=== PATIENT | female | born 1955 | race Caucasian/White ===

== ENCOUNTER 2018-04-01 01:54 | Emergency (ER) | payer MEDICARE ==
[~2018-04-01] VITALS: Ht 170.2 cm; Wt 45.4 kg
[~2018-04-01 01:54] MED LIST: BUPRENORPHINE HC8 MG PO; ESCI10; GABA300 PO; LEVFLO500 PO
[2018-04-01] MEDS ORDERED: ALBU90OI INH (02:23)
[2018-04-01] MEDS ORDERED: TIOT18 INH (02:23)
[2018-04-01] MEDS ORDERED: Prednisone50 MG PO (02:23)
== END 2018-04-01 04:17 | disposition home or self-care (01) ==
LOC: ER 01:54
DX: J44.9 Chronic obstructive pulmonary disease, unspecified (principal); Z88.1 Allergy status to other antibiotic agents; Z88.8 Allergy status to other drugs, medicaments and biological substances; Z79.899 Other long term (current) drug therapy; F17.200 Nicotine dependence, unspecified, uncomplicated
CPT/HCPCS: 94640; 99285-25

== ENCOUNTER 2018-09-05 06:34 | Day surgery (SDC) | payer MEDICARE ==
[~2018-09-05] VITALS: Ht 170.2 cm; Wt 55.0 kg
[~2018-09-05 06:34] MED LIST changes: +ALBU90OI; +ALBU90OI INH; +AMLO5; +BUDE.25; +BUSP15 PO; +BUTRANS1 EAC4; +ESCI20; +LISI20; +MELO7.5; +Prednisone50 MG PO; +TIOT18 INH; +VARE1
== END 2018-09-05 22:38 | disposition home or self-care (01) ==
LOC: MHTC 06:34
DX: I35.8 Other nonrheumatic aortic valve disorders (principal); I70.0 Atherosclerosis of aorta; J44.9 Chronic obstructive pulmonary disease, unspecified; F17.200 Nicotine dependence, unspecified, uncomplicated; I10 Essential (primary) hypertension; F10.10 Alcohol abuse, uncomplicated; Z88.1 Allergy status to other antibiotic agents; Z88.2 Allergy status to sulfonamides
CPT/HCPCS: 93312; 93325; J0282; J2704; J7030

== ENCOUNTER 2018-11-21 15:34 | Inpatient (IN) | payer MEDICARE ==
[~2018-11-21] VITALS: Ht 160 cm; Wt 51.8 kg
[~2018-11-21 15:34] MED LIST changes: -ALBU90OI; -BUDE.25; -BUSP15 PO; -ESCI20; -GABA300 PO; -LISI20; -MELO7.5
[2018-11-21 16:23] LABS: BASOPHILS ABSOLUTE AUTO 0.04 K/mm3 (0.00-0.23); BASOPHILS PERCENT AUTO 0 % (0-2); EOSINOPHILS PERCENT AUTO 0 % (0-6); Hematocrit 48.1 % (33.0-51.0); Hemoglobin 16.5 g/dL (11.5-16.0); IMMATURE GRAN ABSOLUTE AUTO 0.07 K/mm3 (0.00-0.10); IMMATURE GRAN PERCENT AUTO 1 % (0-1); LYMPHOCYTES ABSOLUTE AUTO 0.68 K/mm3 (0.84-5.20); LYMPHOCYTES PERCENT AUTO 6 % (21-46); MONOCYTES ABSOLUTE AUTO 1.58 K/mm3 (0.16-1.47); MONOCYTES PERCENT AUTO 13 % (4-13); Mean Corpuscular HGB 29.6 pg (26.0-34.0); Mean Corpuscular HGB Conc 34.3 g/dL (31.5-36.5); Mean Corpuscular Volume 86 fL (80-100); Mean Platelet Volume 10.6 fL (9.1-12.4); NEUTROPHILS ABSOLUTE AUTO 9.47 K/mm3 (1.96-9.15); NEUTROPHILS PERCENT AUTO 80 % (41-73); Platelet Count 284 K/mm3 (150-400); RDW Coefficient Variation 12.9 % (11.7-14.2); Red Blood Cell Count 5.57 M/mm3 (3.80-5.20); White Blood Cell Count 11.84 K/mm3 (4.00-11.30)
[2018-11-21] MEDS ORDERED: Mobic15 MG PO (16:35)
[2018-11-21 16:38] LABS: U Amphetamine Screen Not Detected; U Barbituate Screen Not Detected; U Benzodiazapine Screen Not Detected; U Buprenorphine Screen Not Detected; U Cannabinoids Screen Not Detected; U Cocaine Screen Not Detected; U Methadone Screen Not Detected; U Methamphetamine Screen Not Detected; U Opiates Screen Not Detected; U Oxycodone Screen Not Detected; U Phencyclidine Screen Not Detected; U Propoxyphene Screen Not Detected
[2018-11-21] MEDS ORDERED: Prinivil10 MG PO (16:41)
[2018-11-21 16:45] LABS: Ethanol (Alcohol), Blood, Med <3 mg/dL; Salicylate 2.6 mg/dL (2.8-20.0)
[2018-11-21 16:46] LABS: Alanine Aminotransfer (ALT/SGP 39 U/L (12-78); Albumin, Blood 3.9 g/dL (3.4-5.0); Albumin/Globulin Ratio 0.9 (0.8-1.8); Alk Phos 153 U/L (50-136); Anion Gap 16 mmol/L (6-16); Aspartate Aminotrans (AST/SGOT 54 U/L (12-37); Bilirubin, Total 1.1 mg/dL (0.1-1.0); Blood Urea Nitrogen 12 mg/dL (8-24); Bun/Creatinine Ratio 21.3 (12.0-20.0); CO2, Blood 20 mmol/L (21-32); Calcium, Blood 9.4 mg/dL (8.5-10.1); Chloride, Blood 94 mmol/L (98-108); Creatinine, Blood 0.56 mg/dL (0.40-1.00); Globulin, Blood 4.4 g/dL (2.2-4.0); Glomerular Filtration Rate >60 (60-); Glucose, Blood 181 mg/dL (70-99); Potassium, Blood 3.3 mmol/L (3.5-5.5); Sodium, Blood 130 mmol/L (136-145); Total Protein, Blood 8.3 g/dL (6.4-8.2)
[2018-11-21 16:53] LABS: Acetaminophen, Random <2.0 ug/mL (10.0-30.0)
[2018-11-21 21:15] LABS: Source, Urine Clean Catch
[2018-11-21 21:21] LABS: Bilirubin, Urine Neg (Neg); Blood, Urine 4+ (Neg); Glucose Qualitative, Urine Neg (Neg); Ketones, Urine 3+ (Neg); Leukocyte Esterase, Urine Neg (Neg); Nitrite, Urine Neg (Neg); Protein, Urine 4+ (Neg); Specific Gravity, Urine 1.015 (1.003-1.022); Urobilinogen, Urine NORM (Normal)
[2018-11-21 21:28] LABS: Appearance, Urine Clear (Clear); Color, Urine Yellow (P-Yellow)
[2018-11-21 21:29] LABS: Bacteria Rare /hpf; Red Blood Cells, Urine 0-2 /hpf (0-2); Squamous Epithelial Cells Not Seen /hpf (Few); White Blood Cells, Urine 0-2 /hpf (0-5)
--- NOTE | 2018-11-21 21:40 | NUR ---
ARRIVAL TO ICU/CIWA/NEURO ASSESSMENTS PT ARRIVED TO ICU APPROX 1900. UPON INITIAL ARRIVAL, PUPILS PINPOINT AND MINIMALLY RESPONSIVE. PT MAKING NO SPONTANEOUS MOVEMENTS, BUT WITHDRAWING TO PAIN IN ALL EXTREMETIES. PT NONVERBAL AND NOT FOLLOWING ANY COMMANDS. WITHIN AN HOUR PT BEGINS OPENING EYES SPONTANEOUSLY. 3 MM BILATERALLY AND RESPONSIVE. EYES NOT TRACKING. PT USING RIGHT HAND TO MAKE SPONTANEOUS MOVEMENTS TOWARDS MOUTH. PURSES LIPS TO TAKE A DRINK FROM A STRAW. OCCASIONAL MOVEMENTS WITH RIGHT LEG. SINCE THEN, PT HAS BEGAN ALSO MOVING LEFT HAND SPONTANEOUSLY WELL RIGHT ARM. PRECEDEX STARTED PT HAS OCCASIONAL SMALL TWITCHING MOVEMENTS IN HANDS, APPEARS TO BE HAVING HALLUCINATIONS SHE IS MAKING DRINKING MOVEMENTS, HEART RATE IS ELEVATED AND FOR PREVENTION OF FURTHER SEIZURES. STATES LAST DRINK WAS WEDNESDAY. OTHERWISE, VITALS STABLE. SEE ADMISSION ASSESSMENT AND FLOWSHEETS. ADMISSION HISTORY AND MED REC COMPLETED WITH ASSISTANCE FROM . VERIFIED PT'S WISHES FOR FULL CODE WITH .
--- NOTE | 2018-11-21 23:23 | NUR ---
REASSESSMENT PT CONTINUES TO BE NONVERBAL. NOT FOLLOWING COMMANDS. PT DID OPEN EYES AND LOOK AT STAFF ONE TIME. MOVING ALL EXTREMETIES SPONTANEOUSLY. HR IMPROVED TO 90'S-100'S WITH PRECEDEX. BP STABLE. SEE FLOWSHEET.
[2018-11-22 00:35] LABS: Anion Gap 14 mmol/L (6-16); Blood Urea Nitrogen 14 mg/dL (8-24); Bun/Creatinine Ratio 23.8 (12.0-20.0); CO2, Blood 22 mmol/L (21-32); Calcium, Blood 8.3 mg/dL (8.5-10.1); Chloride, Blood 100 mmol/L (98-108); Creatinine, Blood 0.59 mg/dL (0.40-1.00); Glomerular Filtration Rate >60 (60-); Glucose, Blood 142 mg/dL (70-99); Potassium, Blood 4.3 mmol/L (3.5-5.5); Sodium, Blood 136 mmol/L (136-145)
[2018-11-22 05:03] LABS: BASOPHILS ABSOLUTE AUTO 0.02 K/mm3 (0.00-0.23); BASOPHILS PERCENT AUTO 0 % (0-2); EOSINOPHILS ABSOLUTE AUTO 0.01 K/mm3 (0.00-0.68); EOSINOPHILS PERCENT AUTO 0 % (0-6); Hematocrit 45.3 % (33.0-51.0); Hemoglobin 15.1 g/dL (11.5-16.0); IMMATURE GRAN ABSOLUTE AUTO 0.07 K/mm3 (0.00-0.10); IMMATURE GRAN PERCENT AUTO 1 % (0-1); LYMPHOCYTES ABSOLUTE AUTO 1.24 K/mm3 (0.84-5.20); LYMPHOCYTES PERCENT AUTO 11 % (21-46); MONOCYTES ABSOLUTE AUTO 1.83 K/mm3 (0.16-1.47); MONOCYTES PERCENT AUTO 16 % (4-13); Mean Corpuscular HGB 29.4 pg (26.0-34.0); Mean Corpuscular HGB Conc 33.3 g/dL (31.5-36.5); Mean Corpuscular Volume 88 fL (80-100); Mean Platelet Volume 9.9 fL (9.1-12.4); NEUTROPHILS ABSOLUTE AUTO 8.64 K/mm3 (1.96-9.15); NEUTROPHILS PERCENT AUTO 73 % (41-73); Platelet Count 190 K/mm3 (150-400); RDW Coefficient Variation 13.1 % (11.7-14.2); RDW Standard Deviation 42.7 fL (35.1-46.3); Red Blood Cell Count 5.14 M/mm3 (3.80-5.20); White Blood Cell Count 11.81 K/mm3 (4.00-11.30)
[2018-11-22 05:17] LABS: Anion Gap 14 mmol/L (6-16); Blood Urea Nitrogen 17 mg/dL (8-24); Bun/Creatinine Ratio 26.8 (12.0-20.0); CO2, Blood 21 mmol/L (21-32); Calcium, Blood 7.9 mg/dL (8.5-10.1); Chloride, Blood 103 mmol/L (98-108); Creatinine, Blood 0.64 mg/dL (0.40-1.00); Glomerular Filtration Rate >60 (60-); Glucose, Blood 141 mg/dL (70-99); Magnesium, Blood 1.5 mg/dL (1.6-2.4); Potassium, Blood 3.7 mmol/L (3.5-5.5); Sodium, Blood 138 mmol/L (136-145)
--- NOTE | 2018-11-22 05:48 | NUR ---
DR. TUBBS COMMUNICATION UPDATED DR. TUBBS ON BLADDER SCAN OF GREATER THAN 950 AND NO URINATION SINCE ARRIVAL TO UNIT. NEW ORDER FOR BETHEA. UPDATED ON FLIPPED T WAVES AND MAGNESIUM LEVEL. NEW ORDER FOR TROPONIN AND MAGNESIUM RECEIVED.
[2018-11-22 06:06] LABS: Source, Urine Catheter
[2018-11-22 06:10] LABS: Bilirubin, Urine Neg (Neg); Blood, Urine 3+ (Neg); Glucose Qualitative, Urine Neg (Neg); Ketones, Urine 2+ (Neg); Leukocyte Esterase, Urine Neg (Neg); Nitrite, Urine Neg (Neg); Protein, Urine 4+ (Neg); Urobilinogen, Urine NORM (Normal)
[2018-11-22 06:15] LABS: Appearance, Urine Clear (Clear); Color, Urine Yellow (P-Yellow)
[2018-11-22 06:16] LABS: Bacteria Not Seen /hpf; Red Blood Cells, Urine 0-2 /hpf (0-2); Squamous Epithelial Cells Not Seen /hpf (Few); White Blood Cells, Urine Not Seen /hpf (0-5)
--- NOTE | 2018-11-22 07:19 | NUR ---
SUMMARY SINCE PREVIOUS NOTE, TROPONIN RESULT ELEVATED. UPDATED DR. TUBBS. NEW ORDER FOR CARDIOLOGY CONSULT, EKG AND ECHO THIS MORNING. DR. ARELLANO TO BEDSIDE THIS MORNING FOR ASSESSMENT. EKG COMPLETED AND REVIEWED WITH DR. ARELLANO. UPON NURSE ROUNDS AND REASSESSMENT, PT REPORTS "OWE" TO STERNUM RUB AND PULLS HANDS AWAY. STRENGTH EQUAL BILATERALLY BUT STILL NOT FOLLOWING COMMANDS. BETHEA INSERTED FOR HIGH BLADDER SCAN VOLUME. SEE FLOWSHEETS FOR VITALS AND TITRATIONS.
[2018-11-22 07:28] LABS: International Normalized Ratio 1.08; Prothrombin Time Results 11.4 Sec (9.7-11.5)
--- NOTE | 2018-11-22 07:40 | NUR ---
ASSUMED CARE REPORT FROM ARLET DESAI. PRECEDEX GTT 0.1 MCG/KG/HR. MAGNESIUM 2 GRAM REPLACEMENT WITH NS 100 ML/HR. PRECEDEX GTT STOPPED FOR PROLONGED QT
--- NOTE | 2018-11-22 07:42 | NUR ---
MD VISIT DR. CARDOZA IN. ORDERS RECEIVED AND IMPLEMENTED. HEPARIN GTT DC'D. BOLUS WAS NOT GIVEN. WILL GIVE ANOTHER 2 GRAM MAG AND ADDITIONAL POTASSIUM
--- NOTE | 2018-11-22 08:10 | NUR ---
MD VISIT DR. BLEVINS IN. ECHO BEING PERFORMED AT THIS TIME
--- NOTE | 2018-11-22 08:41 | NUR ---
echocardiogram completed
--- NOTE | 2018-11-22 10:52 | NUR ---
DR. CARDOZA CALLED TO ASK IF PATIENT CAN SWALLOW YET. PATIENT WAS NOT ABLE TO TAKE WATER WHEN ATTEMPTED. METOPROLOL ORDERED IV Q6 UNTIL PATIENT CAN SWALLOW WITH ORDER TO CALL HIM WHEN PATIENT IS ABLE TO TAKE PO AND HE WILL CHANGE THE RX.
--- NOTE | 2018-11-22 12:16 | NUR ---
NOTIFIED DR. CARDOZA THAT PT IS ABLE TO TAKE PO NOW. IV METOPROLOL CHANGED TO COREG AND THEN DR. CARDOZA CHANGED IT TO TOPROL XL BECAUSE HE REMEMBERED THAT PT IS A HEAVY SMOKER.
[2018-11-22 12:43] LABS: Anion Gap 11 mmol/L (6-16); Blood Urea Nitrogen 19 mg/dL (8-24); Bun/Creatinine Ratio 29.6 (12.0-20.0); CO2, Blood 23 mmol/L (21-32); Calcium, Blood 8.2 mg/dL (8.5-10.1); Chloride, Blood 105 mmol/L (98-108); Creatinine, Blood 0.64 mg/dL (0.40-1.00); Glomerular Filtration Rate >60 (60-); Glucose, Blood 104 mg/dL (70-99); Magnesium, Blood 3.3 mg/dL (1.6-2.4); Potassium, Blood 4.5 mmol/L (3.5-5.5); Sodium, Blood 139 mmol/L (136-145)
--- NOTE | 2018-11-22 12:51 | NUR ---
PT PULLED OUT IV. SAID IT FELT TIGHT. MULTIPLE ATTEMPTS TO START ANOTHER FAILED.
--- NOTE | 2018-11-22 12:55 | NUR ---
IN. ASSISTING PT WITH LUNCH
--- NOTE | 2018-11-22 17:51 | NUR ---
RECEIVED OK FROM DR. CARDOZA FOR PT TO BE CHANGED TO PCU STATUS. DR. BLEVINS NOTIFIED. PT IS NOW PCU STATUS. FAMILY AT BEDSIDE ASSISTING WITH DINNER.
--- NOTE | 2018-11-22 18:08 | NUR ---
ROOT BEER FLOAT PROVIDED
--- NOTE | 2018-11-22 18:50 | NUR ---
PATIENT WAS ABLE TO FEED HERSELF ROOT BEER FLOAT.
--- NOTE | 2018-11-23 | NUR ---
PT HAS BEEN AWAKE & ALERT, COOPERATIVE, BUT FORGETFUL. BED ALARM ON FOR SAFETY. STATES SHE DRINKS A LARGE BOTTLE OF WINE DAILY. DENIES THAT SHE HAS EVER HAD SEIZURES BEFORE. DENIES PAIN, NAUSEA, OR HALLUCINATIONS. NO TREMORS NOTED.
[2018-11-23 04:09] LABS: Anion Gap 9 mmol/L (6-16); Blood Urea Nitrogen 13 mg/dL (8-24); Bun/Creatinine Ratio 25.7 (12.0-20.0); CO2, Blood 24 mmol/L (21-32); Calcium, Blood 7.7 mg/dL (8.5-10.1); Chloride, Blood 101 mmol/L (98-108); Creatinine, Blood 0.51 mg/dL (0.40-1.00); Glomerular Filtration Rate >60 (60-); Glucose, Blood 107 mg/dL (70-99); Magnesium, Blood 1.7 mg/dL (1.6-2.4); Potassium, Blood 3.4 mmol/L (3.5-5.5); Sodium, Blood 134 mmol/L (136-145)
--- NOTE | 2018-11-23 06:00 | NUR ---
PT HAS BEEN AWAKE ALL NIGHT. PT WAS MED W LIBRIUM EARLY IN SHIFT. CONT ALERT, ASKING WHEN SHE CAN GO HOME, BUT ALSO FORGETFUL & REQUIRES REORIENTATION. CONT W BED ALARM FOR SAFETY PT BECOMING MORE ALERT & INTERACTING W SURROUNDINGS, THOUGH NO ATTEMPTS TO GET OOB. ASKS FOR CRANBERRY JUICE, DRINKING WO DIFFICULTY- NO COUGHING. NO NAUSEA, NO TREMORS. CONT W INVERTED TWAVES, BP TRENDING TO 170'S. CALL LIGHT IN REACH.
--- NOTE | 2018-11-23 07:30 | NUR ---
ASSUMED CARE OF PATIENT; SEE ASSESSMENT CHARTING FOR DETAILS. PATIENT ALERT TO SELF; AWARE SHE IS IN THE HOSPITAL BUT CAN'T REMEMBER WHAT CITY SHE IS IN. AWARE IT IS NOVEMBER BUT THOUGHT IT WAS 2000. LAUGHED AT SELF WHEN RN INFORMED HER IT WAS 2018. PLEASANT AND COOPERATIVE. ABLE TO DO AM CARE WITH SETUP BY RN. LUNGS CLEAR BUT DECREASED IN BASES; BIOX 96% ON ROOM AIR. MONITOR NSR WITH PROLONGED QT AND INVERTED T WAVES. DR. CARDOZA HERE; ADDED KTABS D/T K+ LEVEL 3.4 THIS AM AND ALSO ADJUSTED HTN MEDS D/T SBP 170'S TO 180'S. BETHEA TO GRAVITY AND DRAINING FAIR AMOUNT OF MED. YELLOW/CLEAR URINE. FEET VERY DRY; MOISTURE THERAPY OINTMENT APPLIED AFTER CLEANSING. NS INFUSING AT 100ML/HR. IV SITE (LAC) LEAKING, NEW IV STARTED IN R WRIST (20G).
--- NOTE | 2018-11-23 10:00 | NUR ---
ASSISTED OOB TO BSC; FEELING NEED FOR BM. BATHED WHILE SITTING UPRIGHT. PATIENT SHAKY AND UNSTEADY WITH STANDING BUT ABLE TO FOLLOW COMMANDS ON DIRECTION, ETC AND BEARS WEIGHT WELL.
--- NOTE | 2018-11-23 10:35 | NUR ---
ASSISTED BACK TO BED; WARM BLANKETS APPLIED AND BATH COMPLETED. CALL LIGHT AND BED CONTROL REVIEWED WITH PATIENT; RN ASSISTED WITH SELECTING TV PROGRAM TO WATCH; PATIENT STATED "IT GETS A LITTLE BORING".
--- NOTE | 2018-11-23 13:02 | NUR ---
Pt visit this afternoon. Spoke with bedside nurse Alix and discussed case prior to visiting with Pt. Alix reports Pt has shown some improvement. Pt is A&O to self only. Pt denies pain, nausea, SOB, and anxiety. Pt states she feels good. Pt appears comfortable with no S/S of ditress at this time. Received verbal permission to call her . Due to Pt's confusion ended visit and palliative care will F/U when her orientation improves. Palliative Care will remain available.
--- NOTE | 2018-11-23 14:00 | NUR ---
THERAPY SERVICES WORKED WITH PATIENT AND WALKED HER AROUND IN THE ICU CORRIDORS; GAIT BELT AND WALKER USED.
--- NOTE | 2018-11-23 18:30 | NUR ---
SUMMARY: CONT. WITH BOUTS OF FORGETFULNESS/SHORT-TERM MEMORY ISSUES BUT CIWA LEVELS STAYING BELOW 8. DAUGHTER AND SPOUSE VISITED; PATIENT LAUGHING AND CONVERSING IF AT HOME. UP 2X FOR BM'S TODAY; ESCORTED BY NURSING AND USE OF WALKER; PATIENT CAUGHT IV ON LINENS AND IV PULLED OUT OF R WRIST; NEW SITE STARTED IN [facility]. VSS AND MONITOR NSR; QT INTERVALS SHORTENING AND T WAVES LESS INTROVERTED. WILL REPORT TO ONCOMING RN.
--- NOTE | 2018-11-23 19:30 | NUR ---
RECEIVED HAND OFF FROM ARLET NOBLE USING SBAR. LYING IN SEMI PARRY WITH EYES OPEN WHILE WATCHING TV. AAO X2 WITH CONFUSION NOTED. WHILE ASSESSING PT SHE ASKED, "HOW MANY PEOPLE LIVE IN THIS HOUSE?" WHEN NURSING REORIENTED HER SHE STATED, "OH, THAT'S RIGHT. THIS IS THE HOSPITAL! BUT IT REALLY LOOKS LIKE A HOUSE TOO, DOESN'T IT?" REORIENTED TO ROOM, CALL SYSTEM, AND POC, VOICES UNDERSTANDING. WILL REORIENT NEEDED THROUGH OUT SHIFT. RIGHT AC PIV IS PATENT, FLUSHIGN WITH EASE WHILE INFUSING NS AT 100ML/HR. RESPIRATIONS EVEN AND RAPID AT 26 PER MINUTE. LUNG SOUNDS COARSE WITH RHONCHI AND EXP/INSP WHEEZING NOTED IN ALL ROBIN. O2 SAT IS 98% ON ROOM AIR. ABDOMEN SOFT AND NONDISTENDED. BOWEL SOUNDS PRESENT IN ALL QUADS. REPORTED BM X2 TODAY. AMBULATORY TO COMMODE IN ROOM WITH STANDBY ASSIST. DENIES PAIN, DISCOMFORT, OR FURTHER NEEDS AT THIS TIME. SAFETY MEASURES IN PLACE. SHIFT ASSESSMENT IN PROGRESS. WILL CONTINUE TO MONITOR.
[2018-11-24 03:48] LABS: Anion Gap 9 mmol/L (6-16); Blood Urea Nitrogen 12 mg/dL (8-24); Bun/Creatinine Ratio 23.4 (12.0-20.0); CO2, Blood 23 mmol/L (21-32); Calcium, Blood 7.8 mg/dL (8.5-10.1); Chloride, Blood 105 mmol/L (98-108); Creatinine, Blood 0.51 mg/dL (0.40-1.00); Glomerular Filtration Rate >60 (60-); Glucose, Blood 111 mg/dL (70-99); Magnesium, Blood 1.5 mg/dL (1.6-2.4); Potassium, Blood 3.4 mmol/L (3.5-5.5); Sodium, Blood 137 mmol/L (136-145)
--- NOTE | 2018-11-24 05:41 | NUR ---
BETHEA CATH REMOVED WITH TIP INTACT DUE TO PT TOELRATING PO FLUIDS AND AMBULATING TO COMMODE IN ROOM. WILL CONTINUE TO SHARRONOR.
--- NOTE | 2018-11-24 06:10 | NUR ---
SHIFT SUMMARY LYING ON HER LEFT SIDE WITH EYES CLOSED. HAS RESTED WELL THIS SHIFT AFTER BEING REORIENTED. DENIES FURTHER NEEDS AT THIS TIME. SAFETY MEASURES IN PLACE. WILL GIVE HAND OFF TO ONCOING SHIFT USING SBAR.
--- NOTE | 2018-11-24 06:49 | NUR ---
ASSITED TO COMMODE IN ROOM. URINATED 200ML. PERICARE PROVIDED AND ASSISTED BACK TO BED. REORIENTED TO POC, ROOM, AND CALL SYSTEM VOICES UNDERSTANDING. SAFETY MEASURES IN PLACE. WILL CONTINUE TO MONITOR.
--- NOTE | 2018-11-24 07:30 | NUR ---
ASSUMED CARE OF PATIENT; SEE ASSESSMENT CHARTING FOR DETAILS. PATIENT PLEASANT AND COOPERATIVE; SHORT-TERM MEMORY LIMITED. AMBULATING IN ROOM STEADIER THAN YESTERDAY. DR. BLEVINS IN TO EVAL. PATIENT; PLANS TO SEND PATIENT HOME TODAY IF DR. CARDOZA (CARDIOLOGY) DOES NOT PLAN TO DO ANGIOGRAM. IVF INFUSING AT 100ML/HR; SITE CLEAR. MONITOR SHOWS NSR AND VSS. CIWA LEVEL MINIMAL.
--- NOTE | 2018-11-24 09:00 | NUR ---
DR. BLEVINS ORDERED MAGNESIUM AND K+ REPLACEMENTS; SEE ORDERS.
--- NOTE | 2018-11-24 10:25 | NUR ---
T/C TO DR. CARDOZA TO DETERMINE IF PATIENT TO HAVE ANGIOGRAM (PER REQUEST DR. BLEVINS).
--- NOTE | 2018-11-24 10:30 | NUR ---
DR. CARDOZA RETURNED T/C; WANTS PATIENT TO RECEIVE ADDITIONAL DOSE OF IV MAG. ALSO TO F/U WITH HIM IN 1 WEEK.
[2018-11-24] MEDS ORDERED: MAGNESIUM400 M1 PO (10:53)
[2018-11-24] MEDS ORDERED: METO25ER PO (12:25)
[2018-11-24] MEDS ORDERED: LOSA50 PO (12:27)
[2018-11-24] MEDS ORDERED: Pulmicort Fle180 MCG INH (12:57)
[2018-11-24] MEDS ORDERED: ALBU90OI INH (12:57)
[2018-11-24] MEDS ORDERED: BUPRENORPHN-NA1 EACH SL (12:58)
[2018-11-24] MEDS ORDERED: ESCI20 PO (12:59)
--- NOTE | 2018-11-24 13:00 | NUR ---
RN HANGING EXTRA MAG RIDER; CONNECTED TO IV; INFILTRATE. PATIENT TO BE DISCHARGED HOME TODAY; CHARGE NURSE ALBERTA YANEZ RN CONTACTED DR. BLEVINS TO SEE IF IV MAG CAN BE CHANGED TO PO MAG; SEE IF IT IS NECESSARY TO START A NEW IV SITE FOR ONLY 1 MED. DOSING; ORDER TO CHANGE TO PO MAG OXIDE GIVEN.
[2018-11-24] MEDS ORDERED: Klor-Con 1010 MEQ PO (13:02)
--- NOTE | 2018-11-24 13:15 | NUR ---
PATIENT DRESSED IN STREET CLOTHES; SPOUSE JUST RETURNED WITH CLOTHING. QUESTIONING WHERE PATIENT'S PAIR OF PANTS AND QUILT IS; NOT FOUND IN PATIENTS' ROOM. RN T/C TO [facility] ER TO SEE IF A QUILTED/BEDSPREAD AND A PAIR OF PANTS WERE FOUND (PATIENT ARRIVED TO ER ON WEDNESDAY). INSTRUCTED BY ER STAFF MEMBER TO CONTACT LOST AND FOUND; RN T/C LOST AND FOUND; NOTHING ON LIST REGARDING QUILT. LEFT LOST AND FOUND PHONE NUMBER WITH PATIENT/SPOUSE; PERSON INCHARGE OF THIS DEPT. OOT THIS WEEK. REVIEWED DISHARGE ORDERS/INSTRUCTIONS WITH PATIENT AND SPOUSE.
--- NOTE | 2018-11-24 13:30 | NUR ---
DISCHARGED HOME; RN ESCORTED PATIENT OUT TO VEHICLE; PATIENT AND SPOUSE AMBULATED WITHOUT DIFFICULTY. RX'S WERE CALLED IN TO [facility], ON [facility] [address], IN [place].
== END 2018-11-24 13:30 | disposition home or self-care (01) | DRG 896 ==
LOC: ER 15:34 → ICUW 19:31
PROVIDERS: Hospitalist; Internal Medicine; Internal Medicine Cardiovascular Disease; Physician Assistant; ADMIT Internal Medicine
DX: F10.231 Alcohol dependence with withdrawal delirium (principal); G92 Toxic encephalopathy; I51.81 Takotsubo syndrome; E87.1 Hypo-osmolality and hyponatremia; J44.9 Chronic obstructive pulmonary disease, unspecified; E86.0 Dehydration; F41.1 Generalized anxiety disorder; I10 Essential (primary) hypertension; I16.0 Hypertensive urgency; E87.6 Hypokalemia; E83.42 Hypomagnesemia; F17.200 Nicotine dependence, unspecified, uncomplicated; I45.81 Long QT syndrome; Z88.2 Allergy status to sulfonamides; Z88.8 Allergy status to other drugs, medicaments and biological substances; Z79.1 Long term (current) use of non-steroidal anti-inflammatories (NSAID); Z79.899 Other long term (current) drug therapy
CPT/HCPCS: 36415; 51702; 70450; 71045; 73030; 80048; 80053; 81001; 82140; 83735; 84484; 85025; 85610; 85730; 93005; 93010; 93306; 96374; 96376; 97116; 97162; 99285-25; A9270; C9113; G0480; J1650; J2060; J3475; J3480; J7030; P9612

== ENCOUNTER 2018-12-12 15:22 | Inpatient (IN) | payer MEDICARE ==
[~2018-12-12] VITALS: Ht 170.2 cm; Wt 58.0 kg
[~2018-12-12 15:22] MED LIST changes: +BUPRENORPHN-NA1 EACH SL; +ESCI20 PO; +Klor-Con 1010 MEQ PO; +LOSA50 PO; +MAGNESIUM400 M1 PO; +METO25ER PO; +Mobic15 MG PO; +Prinivil10 MG PO; +Pulmicort Fle180 MCG INH
[2018-12-12 15:52] LABS: BASOPHILS ABSOLUTE AUTO 0.15 K/mm3 (0.00-0.23); BASOPHILS PERCENT AUTO 1 % (0-2); EOSINOPHILS ABSOLUTE AUTO 0.55 K/mm3 (0.00-0.68); EOSINOPHILS PERCENT AUTO 4 % (0-6); Hematocrit 41.8 % (33.0-51.0); Hemoglobin 13.4 g/dL (11.5-16.0); IMMATURE GRAN ABSOLUTE AUTO 0.07 K/mm3 (0.00-0.10); IMMATURE GRAN PERCENT AUTO 1 % (0-1); LYMPHOCYTES ABSOLUTE AUTO 2.91 K/mm3 (0.84-5.20); LYMPHOCYTES PERCENT AUTO 23 % (21-46); MONOCYTES ABSOLUTE AUTO 0.83 K/mm3 (0.16-1.47); MONOCYTES PERCENT AUTO 7 % (4-13); Mean Corpuscular HGB 29.2 pg (26.0-34.0); Mean Corpuscular HGB Conc 32.1 g/dL (31.5-36.5); Mean Corpuscular Volume 91 fL (80-100); Mean Platelet Volume 11.1 fL (9.1-12.4); NEUTROPHILS ABSOLUTE AUTO 7.99 K/mm3 (1.96-9.15); NEUTROPHILS PERCENT AUTO 64 % (41-73); Platelet Count 181 K/mm3 (150-400); RDW Coefficient Variation 12.9 % (11.7-14.2); RDW Standard Deviation 42.5 fL (35.1-46.3); Red Blood Cell Count 4.59 M/mm3 (3.80-5.20)
[2018-12-12 16:05] LABS: Calcium, Ionized (POC) 1.06 mmol/L (1.10-1.46); Chloride (POC) 96 mmol/L (98-108); Creatinine (POC) 0.9 mg/dL (0.6-1.0); Glucose (ISTAT POC) 87 mg/dL (70-99); Hemoglobin (POC) 12.6 g/dL (12.0-16.0); Potassium (POC) 4.8 mmol/L (3.5-5.5); Sodium (POC) 129 mmol/L (135-148); Total CO2 (POC) 25 mmol/L (21-32)
[2018-12-12 16:06] LABS: International Normalized Ratio 0.95; Prothrombin Time Results 10.1 Sec (9.7-11.5)
[2018-12-12 16:22] LABS: Alanine Aminotransfer (ALT/SGP 15 U/L (12-78); Albumin, Blood 3.5 g/dL (3.4-5.0); Albumin/Globulin Ratio 0.9 (0.8-1.8); Alk Phos 136 U/L (50-136); Anion Gap 5 mmol/L (6-16); Aspartate Aminotrans (AST/SGOT 23 U/L (12-37); Bilirubin, Total 0.2 mg/dL (0.1-1.0); Blood Urea Nitrogen 8 mg/dL (8-24); Bun/Creatinine Ratio 12.2 (12.0-20.0); CO2, Blood 27 mmol/L (21-32); Calcium, Blood 8.6 mg/dL (8.5-10.1); Chloride, Blood 99 mmol/L (98-108); Creatinine, Blood 0.66 mg/dL (0.40-1.00); Globulin, Blood 3.7 g/dL (2.2-4.0); Glomerular Filtration Rate >60 (60-); Glucose, Blood 90 mg/dL (70-99); Sodium, Blood 131 mmol/L (136-145); Total Protein, Blood 7.2 g/dL (6.4-8.2)
[2018-12-12] MEDS ORDERED: Buspirone HCl7.5 MG PO (17:06)
[2018-12-12] MEDS ORDERED: GABA400 PO (17:23)
--- NOTE | 2018-12-12 21:18 | NUR ---
PCU ADMIT PT BROUGHT TO PCU RM 10 FROM ER BY JORGE @ 2034. PT A&O X4, CALM AND COOPERATIVE. PT WEARING 3L NC, REPORTS RA @ BASELINE. PT LUNG SOUNDS WHEEZY T/O. RT IN ROOM FOR BREATHING TX. PT ABLE TO STAND AND AMBULATE TO PCU BED W/ SBA. PT RLE RED W/ PT REPORT OF PAIN TO RLE. PT ALSO REPORTS DRINKING 3-4 GLASSES OF WINE DAILY, DRINKING VODKA AND TEQUILA WELL. PT NOT DISCLOSING AMOUNT OR FREUENCY OF VODKA OR TEQUILA. PT REPORTS LAST DRINK BEING "LATE LAST NIGHT, EARLY THIS MORNING." WILL MONITOR CIWA. PT ALSO REPORTS HX OF SEIZURES W/ LAST SEISURES BEING "A FEW WEEKS AGO." PT IN BED W/ CALL LIGHT IN REACH. PT ENCOURAGED TO USE CALL LIGHT FOR SBA. WILL CONTINUE TO MONITOR AND PROVIDE CARE.
[2018-12-12 22:58] LABS: Source, Urine Clean Catch
[2018-12-12 23:03] LABS: Bilirubin, Urine Neg (Neg); Blood, Urine Neg (Neg); Glucose Qualitative, Urine Neg (Neg); Ketones, Urine Neg (Neg); Leukocyte Esterase, Urine Neg (Neg); Nitrite, Urine Neg (Neg); Protein, Urine 2+ (Neg); Specific Gravity, Urine 1.005 (1.003-1.022); Urobilinogen, Urine NORM (Normal); pH, Urine 6.5 (5.0-8.0)
[2018-12-12 23:11] LABS: Appearance, Urine Clear (Clear); Color, Urine Pale Yellow (P-Yellow)
[2018-12-12 23:12] LABS: Bacteria Not Seen /hpf; Red Blood Cells, Urine Not Seen /hpf (0-2); Squamous Epithelial Cells Not Seen /hpf (Few); White Blood Cells, Urine Not Seen /hpf (0-5)
[2018-12-12 23:21] LABS: U Amphetamine Screen Not Detected; U Barbituate Screen Not Detected; U Benzodiazapine Screen Not Detected; U Buprenorphine Screen Not Detected; U Cannabinoids Screen Not Detected; U Cocaine Screen Not Detected; U Methadone Screen Not Detected; U Methamphetamine Screen Not Detected; U Opiates Screen Not Detected; U Oxycodone Screen Not Detected; U Phencyclidine Screen Not Detected; U Propoxyphene Screen Not Detected
[2018-12-13 00:15] LABS: Adenovirus Not Detected (NOT DETECT); Bordetella pertussis Not Detected (NOT DETECT); Chlamydophila pneumoniae Not Detected (NOT DETECT); Coronavirus 229E Not Detected (NOT DETECT); Coronavirus HKU1 Not Detected (NOT DETECT); Coronavirus NL63 Not Detected (NOT DETECT); Coronavirus OC43 Not Detected (NOT DETECT); Human Metapneumovirus Not Detected (NOT DETECT); Human Rhinovirus/Enterovirus Not Detected (NOT DETECT); Influenza A Not Detected (NOT DETECT); Influenza A/2009-H1 Not Detected (NOT DETECT); Influenza A/H1 Not Detected (NOT DETECT); Influenza A/H3 Not Detected (NOT DETECT); Influenza B Not Detected (NOT DETECT); Mycoplasma pneumoniae Not Detected (NOT DETECT); Parainfluenza Virus 1 Not Detected (NOT DETECT); Parainfluenza Virus 2 Not Detected (NOT DETECT); Parainfluenza Virus 3 Not Detected (NOT DETECT); Parainfluenza Virus 4 Not Detected (NOT DETECT); Respiratory Syncytial Virus Not Detected (NOT DETECT)
[2018-12-13 03:55] LABS: Hematocrit 39.4 % (33.0-51.0); Hemoglobin 12.6 g/dL (11.5-16.0); Mean Corpuscular HGB 28.8 pg (26.0-34.0); Mean Corpuscular Volume 90 fL (80-100); Mean Platelet Volume 11.4 fL (9.1-12.4); Platelet Count 110 K/mm3 (150-400); RDW Coefficient Variation 12.6 % (11.7-14.2); RDW Standard Deviation 41.1 fL (35.1-46.3); Red Blood Cell Count 4.37 M/mm3 (3.80-5.20)
[2018-12-13 04:06] LABS: Anion Gap 6 mmol/L (6-16); Blood Urea Nitrogen 9 mg/dL (8-24); Bun/Creatinine Ratio 18.4 (12.0-20.0); CO2, Blood 29 mmol/L (21-32); Calcium, Blood 7.8 mg/dL (8.5-10.1); Chloride, Blood 105 mmol/L (98-108); Creatinine, Blood 0.49 mg/dL (0.40-1.00); Glomerular Filtration Rate >60 (60-); Glucose, Blood 141 mg/dL (70-99); Magnesium, Blood 1.5 mg/dL (1.6-2.4); Potassium, Blood 4.5 mmol/L (3.5-5.5); Sodium, Blood 140 mmol/L (136-145)
--- NOTE | 2018-12-13 04:35 | NUR ---
SHIFT SUMMARY PT A&O X4. VSS. NO CHANGES / EVENTS OVER NIGHT. CIWA:1, BILAT HANDS TREMULOUS. WILL CONTINUE TO MONITOR AND PROVIDE CARE UNTIL REPORT OFF TO DAY SHIFT RN.
--- NOTE | 2018-12-13 15:18 | NUR ---
pt arrived to the medical floor from the pcu, a/ox3, appeared to be breathing easily on O2 @ 2l/min, pt is has mild noticable tremors otherwise no other alcohol with drawel symptoms, pt oriented to the room layout and call system
--- NOTE | 2018-12-13 16:53 | NUR ---
PT IS A/OX3, PLEASANT AND COOPERATIVE, THE PT IS UP IND IN HER ROOM, THE PT WAS A TRANSFER FROM THE PCU TODAY, PT REPORTS NEUROPATHY PAIN IN HER FEET, THE PT WAS MEDICATED FOR PAIN X2 SO FAR THIS SHIFT, PT APPEARS TO BE BREATHING EASILY ON O2 @ 2L/MIN VIA NC, CALL LIGHT IN REACH, WILL CONTINUE TO MONITOR AND ASSESS FOR CHANGES, PTS CIWA ON ARRIVAL TO THE MEDICAL FLOOR SCORED 2
--- NOTE | 2018-12-14 03:14 | NUR ---
Buprenorphine and naloxone 1/2 film wasted. Azul Boone RN
--- NOTE | 2018-12-14 03:57 | NUR ---
Shift summary: Pt experiencng some, anxiety, shakes at beginning of shift. Pt given 2 mg of ativan. Pt able to sleep the rest of shift with no c/o discomfort.
[2018-12-14 04:50] LABS: BASOPHILS ABSOLUTE AUTO 0.05 K/mm3 (0.00-0.23); BASOPHILS PERCENT AUTO 1 % (0-2); EOSINOPHILS ABSOLUTE AUTO 0.25 K/mm3 (0.00-0.68); EOSINOPHILS PERCENT AUTO 3 % (0-6); Hematocrit 35.8 % (33.0-51.0); Hemoglobin 11.3 g/dL (11.5-16.0); IMMATURE GRAN ABSOLUTE AUTO 0.04 K/mm3 (0.00-0.10); IMMATURE GRAN PERCENT AUTO 1 % (0-1); LYMPHOCYTES ABSOLUTE AUTO 1.81 K/mm3 (0.84-5.20); LYMPHOCYTES PERCENT AUTO 24 % (21-46); MONOCYTES PERCENT AUTO 9 % (4-13); Mean Corpuscular HGB Conc 31.6 g/dL (31.5-36.5); Mean Corpuscular Volume 92 fL (80-100); Mean Platelet Volume 11.4 fL (9.1-12.4); NEUTROPHILS PERCENT AUTO 62 % (41-73); Platelet Count 120 K/mm3 (150-400); RDW Standard Deviation 43.3 fL (35.1-46.3); Red Blood Cell Count 3.89 M/mm3 (3.80-5.20); White Blood Cell Count 7.55 K/mm3 (4.00-11.30)
[2018-12-14 05:13] LABS: Alanine Aminotransfer (ALT/SGP 14 U/L (12-78); Albumin, Blood 2.5 g/dL (3.4-5.0); Albumin/Globulin Ratio 0.8 (0.8-1.8); Alk Phos 88 U/L (50-136); Anion Gap 5 mmol/L (6-16); Aspartate Aminotrans (AST/SGOT 11 U/L (12-37); Bilirubin, Total 0.2 mg/dL (0.1-1.0); Blood Urea Nitrogen 14 mg/dL (8-24); Bun/Creatinine Ratio 16.6 (12.0-20.0); CO2, Blood 31 mmol/L (21-32); Calcium, Blood 7.5 mg/dL (8.5-10.1); Chloride, Blood 102 mmol/L (98-108); Creatinine, Blood 0.84 mg/dL (0.40-1.00); Glomerular Filtration Rate >60 (60-); Glucose, Blood 109 mg/dL (70-99); Potassium, Blood 3.9 mmol/L (3.5-5.5); Sodium, Blood 138 mmol/L (136-145); Total Protein, Blood 5.5 g/dL (6.4-8.2)
[2018-12-14] MEDS ORDERED: LEVFLO500 PO (13:18)
--- NOTE | 2018-12-14 14:51 | NUR ---
PT DISCHARGED HOME. TRANSPORTED OUTSIDE VIA WHEELCHAIR WHERE HER WAS WAITING WITH VEHICLE. PT PLESANT AND COOPERATIVE, EXPRESSED UNDERSTANDING OF DISCHARGE INSTRUCTIONS.
--- NOTE | 2018-12-14 17:19 | NUR ---
Spiritual Care inital note: Lesvia was awake and alert. She is being discharged soon. She states her only concern is about "how this happened." She is unclear of her dx. Lesvia is pleasant and tells me she feels loved and supported by her . She allowed me to pray for her at bedside. We had an easy rapport.
== END 2018-12-14 14:50 | disposition home or self-care (01) | DRG 871 ==
LOC: ER 15:22 → PCU 17:16 → MEDS 20:46
PROVIDERS: Emergency Medicine; Internal Medicine; Physician Assistant; ADMIT Internal Medicine
DX: A41.9 Sepsis, unspecified organism (principal); J96.01 Acute respiratory failure with hypoxia; J18.9 Pneumonia, unspecified organism; J44.1 Chronic obstructive pulmonary disease with (acute) exacerbation; J44.0 Chronic obstructive pulmonary disease with (acute) lower respiratory infection; L03.115 Cellulitis of right lower limb; E87.1 Hypo-osmolality and hyponatremia; R65.20 Severe sepsis without septic shock; F41.9 Anxiety disorder, unspecified; F41.1 Generalized anxiety disorder; F17.200 Nicotine dependence, unspecified, uncomplicated; I10 Essential (primary) hypertension; Z88.2 Allergy status to sulfonamides; Z88.8 Allergy status to other drugs, medicaments and biological substances
CPT/HCPCS: 0099U; 36415; 71045; 71260; 80047; 80048; 80053; 81001; 83605; 83735; 84484; 85014; 85025; 85027; 85610; 85730; 87040; 93005; 93010; 93971; 94640; 94644; 94760; 94761; 96361; 96365-59; 96366; 96375-59; 99285-25; A9270; C9113; G0480; J0572; J1650; J1956; J2060; J2930; J3370; J3411; J3475; J7030; J7042; Q9967

== ENCOUNTER 2018-12-27 14:49 | Emergency (ER) | payer MEDICARE ==
[~2018-12-27] VITALS: Ht 170.2 cm; Wt 54.4 kg
[~2018-12-27 14:49] MED LIST changes: +Buspirone HCl7.5 MG PO; +GABA400 PO
[2018-12-27] MEDS ORDERED: Mobic15 MG PO (15:26)
[2018-12-27 15:27] LABS: BASOPHILS ABSOLUTE AUTO 0.07 K/mm3 (0.00-0.23); BASOPHILS PERCENT AUTO 1 % (0-2); EOSINOPHILS ABSOLUTE AUTO 0.01 K/mm3 (0.00-0.68); EOSINOPHILS PERCENT AUTO 0 % (0-6); Hematocrit 49.2 % (33.0-51.0); Hemoglobin 15.7 g/dL (11.5-16.0); IMMATURE GRAN PERCENT AUTO 1 % (0-1); LYMPHOCYTES ABSOLUTE AUTO 1.61 K/mm3 (0.84-5.20); LYMPHOCYTES PERCENT AUTO 12 % (21-46); MONOCYTES PERCENT AUTO 4 % (4-13); Mean Corpuscular HGB 28.8 pg (26.0-34.0); Mean Corpuscular HGB Conc 31.9 g/dL (31.5-36.5); Mean Corpuscular Volume 90 fL (80-100); Mean Platelet Volume 11.2 fL (9.1-12.4); NEUTROPHILS ABSOLUTE AUTO 11.62 K/mm3 (1.96-9.15); NEUTROPHILS PERCENT AUTO 83 % (41-73); Platelet Count 141 K/mm3 (150-400); RDW Coefficient Variation 12.4 % (11.7-14.2); RDW Standard Deviation 40.3 fL (35.1-46.3); Red Blood Cell Count 5.45 M/mm3 (3.80-5.20); White Blood Cell Count 14.01 K/mm3 (4.00-11.30)
[2018-12-27 15:50] LABS: Alanine Aminotransfer (ALT/SGP 20 U/L (12-78); Albumin, Blood 3.8 g/dL (3.4-5.0); Alk Phos 141 U/L (50-136); Anion Gap 17 mmol/L (6-16); Aspartate Aminotrans (AST/SGOT 24 U/L (12-37); Bilirubin, Total 0.5 mg/dL (0.1-1.0); Blood Urea Nitrogen 17 mg/dL (8-24); CO2, Blood 16 mmol/L (21-32); Calcium, Blood 9.8 mg/dL (8.5-10.1); Chloride, Blood 99 mmol/L (98-108); Creatinine, Blood 0.81 mg/dL (0.40-1.00); Globulin, Blood 3.8 g/dL (2.2-4.0); Glomerular Filtration Rate >60 (60-); Glucose, Blood 170 mg/dL (70-99); Potassium, Blood 4.6 mmol/L (3.5-5.5); Sodium, Blood 132 mmol/L (136-145); Total Protein, Blood 7.6 g/dL (6.4-8.2)
[2018-12-27] MEDS ORDERED: CHLO25 PO (16:46)
== END 2018-12-27 18:30 | disposition home or self-care (01) ==
LOC: ER 14:49
PROVIDERS: Emergency Medicine
DX: R56.9 Unspecified convulsions (principal); F10.239 Alcohol dependence with withdrawal, unspecified; Z88.2 Allergy status to sulfonamides; Z88.1 Allergy status to other antibiotic agents; Z79.899 Other long term (current) drug therapy; J44.9 Chronic obstructive pulmonary disease, unspecified; I10 Essential (primary) hypertension; F32.9 Major depressive disorder, single episode, unspecified; F17.200 Nicotine dependence, unspecified, uncomplicated
CPT/HCPCS: 80053; 85025; 96374; 99284-25; J2405

== ENCOUNTER 2019-08-11 18:37 | Emergency (ER) | payer MEDICARE ==
[~2019-08-11] VITALS: Ht 170.2 cm; Wt 56.7 kg
[~2019-08-11 18:37] MED LIST changes: +CHLO25 PO
[2019-08-12] MEDS ORDERED: NEURONTIN300 MG PO (13:49)
== END 2019-08-11 20:25 | disposition left against medical advice (07) ==
LOC: ER 18:37
DX: Z53.21 Procedure and treatment not carried out due to patient leaving prior to being seen by health care provider (principal)
CPT/HCPCS: 71046; 99283-25

== ENCOUNTER → 2019-09-15 | Outpatient (CLI) | payer MEDICARE ==
[~2019-09-15] MED LIST changes: +NEURONTIN300 MG PO
[2019-09-15 14:06] LABS: Source, Urine Clean Catch
[2019-09-15 17:54] LABS: Bilirubin, Urine Neg (Neg); Blood, Urine Neg (Neg); Glucose Qualitative, Urine Neg (Neg); Ketones, Urine Neg (Neg); Leukocyte Esterase, Urine 1+ (Neg); Nitrite, Urine Neg (Neg); Protein, Urine 2+ (Neg); Urobilinogen, Urine NORM (Normal)
[2019-09-15 18:01] LABS: Appearance, Urine Clear (Clear); Color, Urine Yellow (P-Yellow)
[2019-09-15 18:03] LABS: Bacteria Mod /hpf; Mucus Light (0-Heavy); Red Blood Cells, Urine 0-2 /hpf (0-2); Squamous Epithelial Cells Few /hpf (Few)
[2019-09-15 18:19] LABS: Osmolality, Urine 339 mos/kg (15-1400)
[2019-09-15 18:44] LABS: Albumin, Blood 3.1 g/dL (3.4-5.0); Anion Gap 11 mmol/L (6-16); Blood Urea Nitrogen 16 mg/dL (8-24); Bun/Creatinine Ratio 15.5 (12.0-20.0); CO2, Blood 23 mmol/L (21-32); Calcium, Blood 7.9 mg/dL (8.5-10.1); Chloride, Blood 98 mmol/L (98-108); Creatinine, Blood 1.03 mg/dL (0.40-1.00); Free Thyroxine 1.24 ng/dL (0.70-1.60); Glomerular Filtration Rate 57 (60-); Glucose, Blood 104 mg/dL (70-99); Phosphorus, Blood 4.5 mg/dL (2.5-4.9); Potassium, Blood 4.2 mmol/L (3.5-5.5); Sodium, Blood 132 mmol/L (136-145)
[2019-09-15 19:01] LABS: Sodium, Urine, Random 11 mmol/L (20-110)
== END | disposition home or self-care (01) ==
LOC: LAB 12:30 → LAB SHORT 12:30
PROVIDERS: Nurse Practitioner Family
DX: E87.1 Hypo-osmolality and hyponatremia (principal); E78.5 Hyperlipidemia, unspecified; R94.4 Abnormal results of kidney function studies
CPT/HCPCS: 80069; 81001; 83930; 83935; 84300; 84439; 84443; 87077; 87086; 87186

== ENCOUNTER 2021-01-09 09:26 | Emergency (ER) | payer MEDICARE ==
[~2021-01-09] VITALS: Ht 167.6 cm; Wt 72.6 kg
[~2021-01-09 09:26] MED LIST changes: +ATOR20 PO; +Aspir 8181 MG PO; +CLOP75 PO; +FERROUS GLUCON324 M2 PO; +Furosemide40 MG PO; +HYDHCL25 PO; +OMEPRAZOLE MAGN20 MG PO; +POTA10T PO
[2021-01-09 10:05] LABS: Calcium, Ionized (POC) 1.02 mmol/L (1.10-1.46); Chloride (POC) 94 mmol/L (98-108); Creatinine (POC) 1.2 mg/dL (0.6-1.0); Glucose (ISTAT POC) 111 mg/dL (70-99); Hemoglobin (POC) 15.6 g/dL (12.0-16.0); Potassium (POC) 4.2 mmol/L (3.5-5.5); Sodium (POC) 128 mmol/L (135-148); Total CO2 (POC) 24 mmol/L (21-32)
[2021-01-09 10:11] LABS: BASOPHILS ABSOLUTE AUTO 0.05 K/mm3 (0.00-0.23); BASOPHILS PERCENT AUTO 0 % (0-2); EOSINOPHILS ABSOLUTE AUTO 0.11 K/mm3 (0.00-0.68); EOSINOPHILS PERCENT AUTO 1 % (0-6); Hematocrit 43.4 % (33.0-51.0); Hemoglobin 14.2 g/dL (11.5-16.0); Mean Corpuscular HGB 29.6 pg (26.0-34.0); Mean Corpuscular HGB Conc 32.7 g/dL (31.5-36.5); Mean Corpuscular Volume 90 fL (80-100); Mean Platelet Volume 8.6 fL (9.1-12.4); Platelet Count 314 K/mm3 (150-400); RDW Coefficient Variation 13.8 % (11.7-14.2); RDW Standard Deviation 45.5 fL (35.1-46.3); White Blood Cell Count 15.86 K/mm3 (4.00-11.30)
[2021-01-09 10:17] LABS: IMMATURE GRAN ABSOLUTE AUTO 0.41 K/mm3 (0.00-0.10); IMMATURE GRAN PERCENT AUTO 3 % (0-1); LYMPHOCYTES ABSOLUTE AUTO 5.93 K/mm3 (0.84-5.20); LYMPHOCYTES PERCENT AUTO 37 % (21-46); MONOCYTES ABSOLUTE AUTO 1.26 K/mm3 (0.16-1.47); MONOCYTES PERCENT AUTO 8 % (4-13); NEUTROPHILS PERCENT AUTO 51 % (41-73)
[2021-01-09 10:31] LABS: Troponin I <0.015 ng/mL (0.000-0.040)
[2021-01-09 10:43] LABS: Alanine Aminotransfer (ALT/SGP 60 U/L (12-78); Albumin, Blood 3.5 g/dL (3.4-5.0); Albumin/Globulin Ratio 0.9 (0.8-1.8); Alk Phos 96 U/L (50-136); Anion Gap 11 mmol/L (6-16); Aspartate Aminotrans (AST/SGOT 65 U/L (12-37); Bilirubin, Total 0.3 mg/dL (0.1-1.0); Blood Urea Nitrogen 20 mg/dL (8-24); Bun/Creatinine Ratio 31.8 (12.0-20.0); CO2, Blood 25 mmol/L (21-32); Calcium, Blood 8.5 mg/dL (8.5-10.1); Chloride, Blood 93 mmol/L (98-108); Creatinine, Blood 0.63 mg/dL (0.40-1.00); Ethanol (Alcohol), Blood, Med 332 mg/dL; Globulin, Blood 3.8 g/dL (2.2-4.0); Glomerular Filtration Rate >60 (60-); Glucose, Blood 105 mg/dL (70-99); Potassium, Blood 4.1 mmol/L (3.5-5.5); Sodium, Blood 129 mmol/L (136-145); Total Protein, Blood 7.3 g/dL (6.4-8.2)
[2021-01-09] MEDS ORDERED: AMOCLA875 PO ×2 (10:43→10:58)
[2021-01-09 11:24] LABS: BAND PERCENT MAN 2 % (0-8); BASOPHILS PERCENT MAN 0 % (0-2); EOSINOPHILS ABSOLUTE MAN 0.15 K/mm3 (0.00-0.68); EOSINOPHILS PERCENT MAN 1 % (0-6); LYMPHOCYTES % ATYPICAL MANUAL 1 % (0-0); LYMPHOCYTES ABSOLUTE MAN 6.02 K/mm3 (0.84-5.20); LYMPHOCYTES PERCENT MAN 37 % (21-46); MONOCYTES ABSOLUTE MAN 1.11 K/mm3 (0.16-1.47); MONOCYTES PERCENT MAN 7 % (4-13); MYELOCYTE ABSOLUTE MAN 0.31 K/mm3 (0.00-0.00); MYELOCYTE PERCENT MAN 2 % (0-0); NEUTROPHILS ABSOLUTE MAN 8.24 K/mm3 (1.96-9.15); SEG NEUTROPHILS PERCENT MAN 50 % (41-73); TOTAL CELLS COUNTED 100
== END 2021-01-09 11:30 | disposition home or self-care (01) ==
LOC: ER 09:26
PROVIDERS: Physician Assistant
DX: J18.9 Pneumonia, unspecified organism (principal); I10 Essential (primary) hypertension; J44.9 Chronic obstructive pulmonary disease, unspecified; Z87.891 Personal history of nicotine dependence; Z88.2 Allergy status to sulfonamides; Z88.1 Allergy status to other antibiotic agents; Z79.899 Other long term (current) drug therapy
CPT/HCPCS: 71045; 80047; 80053; 83735; 83880; 84484; 85014; 85025; 93005; 93010; 99285-25; A9270; G0480

== ENCOUNTER 2021-08-12 10:35 | Inpatient (IN) | payer MEDICARE ==
[~2021-08-12] VITALS: Ht 167.6 cm; Wt 56.8 kg
[~2021-08-12 10:35] MED LIST changes: +AMOCLA875 PO
[2021-08-12 11:04] LABS: BASOPHILS ABSOLUTE AUTO 0.07 K/mm3 (0.00-0.23); BASOPHILS PERCENT AUTO 1 % (0-2); EOSINOPHILS ABSOLUTE AUTO 0.13 K/mm3 (0.00-0.68); EOSINOPHILS PERCENT AUTO 2 % (0-6); Hematocrit 42.7 % (33.0-51.0); Hemoglobin 14.4 g/dL (11.5-16.0); IMMATURE GRAN ABSOLUTE AUTO 0.08 K/mm3 (0.00-0.10); IMMATURE GRAN PERCENT AUTO 1 % (0-1); LYMPHOCYTES ABSOLUTE AUTO 2.05 K/mm3 (0.84-5.20); LYMPHOCYTES PERCENT AUTO 27 % (21-46); MONOCYTES ABSOLUTE AUTO 0.29 K/mm3 (0.16-1.47); MONOCYTES PERCENT AUTO 4 % (4-13); Mean Corpuscular HGB 29.4 pg (26.0-34.0); Mean Corpuscular HGB Conc 33.7 g/dL (31.5-36.5); Mean Corpuscular Volume 87 fL (80-100); Mean Platelet Volume 9.1 fL (9.1-12.4); NEUTROPHILS ABSOLUTE AUTO 4.86 K/mm3 (1.96-9.15); NEUTROPHILS PERCENT AUTO 65 % (41-73); Platelet Count 394 K/mm3 (150-400); RDW Coefficient Variation 14.3 % (11.7-14.2); RDW Standard Deviation 45.4 fL (35.1-46.3); White Blood Cell Count 7.48 K/mm3 (4.00-11.30)
[2021-08-12 11:26] LABS: Alanine Aminotransfer (ALT/SGP 21 U/L (12-78); Albumin, Blood 3.4 g/dL (3.4-5.0); Albumin/Globulin Ratio 0.9 (0.8-1.8); Alk Phos 196 U/L (50-136); Anion Gap 12 mmol/L (6-16); Aspartate Aminotrans (AST/SGOT 32 U/L (12-37); Bilirubin, Total 0.2 mg/dL (0.1-1.0); Blood Urea Nitrogen 4 mg/dL (8-24); Bun/Creatinine Ratio 7.2 (12.0-20.0); CO2, Blood 23 mmol/L (21-32); Calcium, Blood 8.4 mg/dL (8.5-10.1); Chloride, Blood 93 mmol/L (98-108); Creatinine, Blood 0.55 mg/dL (0.40-1.00); Globulin, Blood 3.6 g/dL (2.2-4.0); Glomerular Filtration Rate >60 (60-); Glucose, Blood 107 mg/dL (70-99); Potassium, Blood 4.6 mmol/L (3.5-5.5); Sodium, Blood 128 mmol/L (136-145)
[2021-08-12] MEDS ORDERED: FLUT1DIS5 INH (14:07)
[2021-08-12] MEDS ORDERED: PRED20 PO (14:07)
[2021-08-12] MEDS ORDERED: ALBU90OI INH (14:07)
--- NOTE | 2021-08-12 17:57 | NUR ---
SHIFT SUMMARY PATIENT IS ALERT AND ORIENTED X2. PATIENT WAS ADMITTED TO THE MEDICAL FLOOR FROM ED AT 1700. PATIENTS ADMISSION IS DONE AND PATIENT IS ORIENTED TO ROOM. PATIENT STATED THAT SHE IS A CHRONIC DRINKER AND LAST DRINK WAS LAST NIGHT. MONITORING CIWAS AND FIRST LIBRIUM GIVEN TODAY. NO ACUTE EVENTS THIS SHIFT. VITAL SIGNS REVIEWED. BED ALARM ON. CALL LIGHT IN PLACE. WILL MONITOR UNTIL SHIFT CHANGE.
--- NOTE | 2021-08-13 04:46 | NUR ---
PT A& Ox4. PT CONFUSED AT TIMES. ELEVATED BP AND HR. PT GIVEN PRN IV HYDRALAZINE PER EMAR. PT DENIED ANY C/P. ON CIUT PROTOCOL AND MEDICATED PER SCORE. IV ATIVAN GIVEN TWICE AND PRN PO LIBRIUM GIVEN ONCE PER [facility] SCORE/ORDER. REGULAR DIET. IV TO R) AC. UP TO BEDSIDE COMMODE X2; 1-ASSIST WITH GB. WILL CONTINUE TO MONITOR.
[2021-08-13 08:32] LABS: Hematocrit 46.1 % (33.0-51.0); Hemoglobin 15.2 g/dL (11.5-16.0); Mean Corpuscular HGB 28.8 pg (26.0-34.0); Mean Corpuscular Volume 88 fL (80-100); Mean Platelet Volume 9.7 fL (9.1-12.4); Platelet Count 426 K/mm3 (150-400); RDW Coefficient Variation 14.5 % (11.7-14.2); Red Blood Cell Count 5.27 M/mm3 (3.80-5.20); White Blood Cell Count 10.13 K/mm3 (4.00-11.30)
[2021-08-13 08:40] LABS: Magnesium, Blood 1.8 mg/dL (1.6-2.4)
[2021-08-13 08:42] LABS: Alanine Aminotransfer (ALT/SGP 20 U/L (12-78); Albumin, Blood 3.7 g/dL (3.4-5.0); Albumin/Globulin Ratio 0.9 (0.8-1.8); Alk Phos 221 U/L (50-136); Anion Gap 6 mmol/L (6-16); Aspartate Aminotrans (AST/SGOT 24 U/L (12-37); Bilirubin, Total 0.5 mg/dL (0.1-1.0); Blood Urea Nitrogen 11 mg/dL (8-24); CO2, Blood 25 mmol/L (21-32); Calcium, Blood 9.5 mg/dL (8.5-10.1); Chloride, Blood 101 mmol/L (98-108); Creatinine, Blood 0.53 mg/dL (0.40-1.00); Glomerular Filtration Rate >60 (60-); Glucose, Blood 162 mg/dL (70-99); Potassium, Blood 4.4 mmol/L (3.5-5.5); Sodium, Blood 132 mmol/L (136-145); Total Protein, Blood 7.7 g/dL (6.4-8.2)
[2021-08-13 10:24] LABS: U Amphetamine Screen Not Detected; U Barbituate Screen Not Detected; U Methamphetamine Screen Not Detected
[2021-08-13 10:25] LABS: U Benzodiazapine Screen DETECTED; U Buprenorphine Screen Not Detected; U Cannabinoids Screen Not Detected; U Cocaine Screen Not Detected; U Methadone Screen Not Detected; U Opiates Screen Not Detected; U Oxycodone Screen Not Detected; U Phencyclidine Screen Not Detected; U Propoxyphene Screen Not Detected
--- NOTE | 2021-08-13 15:28 | NUR ---
SHIFT SUMMARY PATIENT IS ALERT AND ORIENTED X2-3. PATIENT IS WITHDRAWING FROM ETOH ABUSE. PATIENT HAD LAST DRINK 24HRS AGO. PATIENT HAS BEEN HAVING CIWAS 8-10 THIS SHIFT. PATIENT HAS BEEN HAVING ANXIETY AND HAS BEEN MEDICATED PRN. PATIENT HAD PULSE OF 150 THIS MORNING AND WAS GIVEN IV METOPROLOL AND SCHEDULED HR MEDICATION. VITAL SIGNS REVIEWED. BED ALARM ON. PATIENT HAS BEEN IMPLULSIVE AND GETS OUT OF BED. PATIENT USES BEDSIDE COMMODE FREQUENTLY. BED IN LOCKED AND LOWEST POSITION. CALL LIGHT IN PLACE.
--- NOTE | 2021-08-13 19:58 | NUR ---
NURSE NOTE: NOTIFIED MYRIAM SAUCEDA- PATIENT HAVING ELAVATED WITHDRAWALS, CIWA COMPLETED SHOWING A SCORE OF 23. FAMILY AT BEDSIDE HAVING CONCERNS PATIENT MAY START HAVING SEIZURE ACTIVITY BASED ON CURRENT WITHDRAWAL AND CURRENT APPEARANCE. PATIENT HAS HISTORY OF SEIZURES WITH ALCOHOL WITHDRAWAL PER . 4MG OF ATIVAN ADMINISTERED. APPROVED FOR PATIENT TO TRANSFER TO PCU.
--- NOTE | 2021-08-13 22:36 | NUR ---
CARE ASSUMPTION: RECEIVED REPORT FROM REYNA MYLES [facility] ARMIDA RN. PATIENT TRANSFERRED BY BED TO PCU 02 AND BEDS WERE SWITCHED. PATIENT AGITATED, FEARFUL, HAVING VISUAL HALLUCINATIONS, AND TRYING TO SMOKE ANYTHING THAT WAS ORANGE OR HAD RED LIGHT (EG, IV CAPS AND SPO02 PROBE). PATIENT REFUSED NICODERM PATCH OR GUM. PATIENT'S SARA REORIENTED PATIENT AND THEN WENT HOME FOR THE NIGHT. LIBRIUM AND ATIVAN WERE ADMINISTERED PER EMAR WITH NO POSITIVE RESULTS. CIWAS >=28. DEBRA VEST APPLIED AND THEN PATIENT SNAPPED TELE CORDS AND SPO2 MONITOR CORD. PATIENT WAS PUT IN HOSPITAL GOWN AND ATTENDS AT THIS TIME. ORDER FOR SOFT WRIST RESTRAINTS WAS OBTAINED AND PATIENT CONTINUED TO HAVE AGITATION AND HALLUCINATIONS. PHENOBARBITOL WAS ORDERED AND ADMINISTERED PER EMAR. AT THIS TIME PATIENT IS ASLEEP IN BED WITH DEBRA VEST AND WRIST RESTRAINTS IN PLACE. CALL LIGHT IN REACH, BED LOW AND LOCKED WITH BED ALARM SET.
[2021-08-14 04:04] LABS: Hematocrit 42.7 % (33.0-51.0); Mean Corpuscular HGB 29.1 pg (26.0-34.0); Mean Corpuscular HGB Conc 32.8 g/dL (31.5-36.5); Mean Corpuscular Volume 89 fL (80-100); Mean Platelet Volume 9.9 fL (9.1-12.4); NRBC ABSOLUTE 0.03 K/mm3 (0.00-0.02); NRBC Auto 0.1 /100 WBC (0.0-0.2); Platelet Count 342 K/mm3 (150-400); RDW Coefficient Variation 14.7 % (11.7-14.2); RDW Standard Deviation 47.3 fL (35.1-46.3); Red Blood Cell Count 4.81 M/mm3 (3.80-5.20); White Blood Cell Count 22.39 K/mm3 (4.00-11.30)
[2021-08-14 04:31] LABS: Albumin, Blood 3.4 g/dL (3.4-5.0); Bilirubin, Total 0.4 mg/dL (0.1-1.0); Bun/Creatinine Ratio 21.1 (12.0-20.0); Calcium, Blood 9.2 mg/dL (8.5-10.1); Creatinine, Blood 0.71 mg/dL (0.40-1.00); Globulin, Blood 3.4 g/dL (2.2-4.0); Magnesium, Blood 2.3 mg/dL (1.6-2.4); Potassium, Blood 4.2 mmol/L (3.5-5.5); Total Protein, Blood 6.8 g/dL (6.4-8.2)
--- NOTE | 2021-08-14 05:50 | NUR ---
SHIFT SUMMARY: PATIENT MAINTAINED O2 SATS >89% ON RA T/O NIGHT, HYPERTENSIVE, HR 70-100S. CIWAS 8-31, DID NOT RESPOND TO ATIVAN DOSING SO PHENOBARBITOL WAS ADDED. MEDICATED PER EMAR. WRIST RESTRAINTS AND DEBRA VEST IN PLACE TO PROTECT PATIENT AND EQUIPMENT. WILL CONTINUE TO MONITOR AND REPORT TO ONCOMING RN.
--- NOTE | 2021-08-14 07:23 | NUR ---
ASSUMED CARE: PT IS IN BED RESTING AT TIME OF REPORT. PT SATTING AT 94% ON ROOM AIR, SINUS RHYTHM IN 80'S. DEBRA VEST AND BILATERAL SOFT WRIST RESTRAINTS IN PLACE. SEIZURE PADS IN PLACE ON RAILS, CALL LIGHT WITHIN REACH. NO ACUTE NEEDS/DISTRESS AT THIS TIME.
--- NOTE | 2021-08-14 09:20 | NUR ---
REVIEWED COIL WINDER'S HEAD TO TOE ASSESSMENT AND AGREE
--- NOTE | 2021-08-14 16:28 | NUR ---
PT HAS HAD MULTIPLE DISCUSSIONS W/ CARE MANAGEMENT AND SPIRITUAL SERVICES REGARDING HIS PROGNOSIS AND CONITUATION OF CARE. PT HAD REFUSED PT SERVICES TODAY STATING THAT HE WOULD BE "PUT ON HOSPICE" BY THE END OF THIS WEEK. DR LEVY CONFIRMED THAT PT IS NOT APPROPRIATE FOR HOSPICE MEDICALLY. DR LEVY AND CARE MANAGEMENT DISCUSSED THE NEED FOR PT AND CAREGIVERS TO DETERMINE BEST COURSE FOR ALL PARTIES. CARE MANAGEMENT STATED THAT THEY WOULD CONTINUE TO FOLLOW UP W/ MIRIAM TO DETERMINE BEST COURSE AND POTENTIAL TRANSFER TO DIFFERENT FACILITY OR OUTPATIENT CARE.
--- NOTE | 2021-08-14 17:43 | NUR ---
SHIFT SUMMARY: PT IS CONFUSED AND EXPERIENCING VISUAL AND AUDITORY HALLUCINATIONS. PT IS SATTING AT 93 ON ROOM AIR, SINUS RHYTYM AT RATE OF 80'S. PT HAS BEEN INTERMITTENTLY SLEEPING THROUGHOUT SHIFT. WHEN PT US NOT SLEEPING SHE IS ABLE TO FOLLOW SIMPLE COMMANDS AND IS EASILY CONSOLABLE. PT'S SPOUSE VISITED W/ PT IN AM, PT WAS SLEEPING. PT RECEIVED SCHEDULED DOSE OF LIBRIUM AT 0800, PRN PHENOBARBITAL AT 1500, AND PRN LIBRIUM AT 1645. PT HAS BEEN ABLE TO TOLERATE PO INTAKE AND IS CONFUSED ON LIMITATIONS WHEN DRINKING LIQUIDS. CALL LIGHT WITHIN REACH, NO ACUTE NEEDS/DISTRESS A THIS TIME.
[2021-08-15 04:31] LABS: Hematocrit 37.8 % (33.0-51.0); Hemoglobin 12.2 g/dL (11.5-16.0); Mean Corpuscular HGB 29.3 pg (26.0-34.0); Mean Corpuscular HGB Conc 32.3 g/dL (31.5-36.5); Mean Corpuscular Volume 91 fL (80-100); Platelet Count 253 K/mm3 (150-400); RDW Coefficient Variation 14.8 % (11.7-14.2); RDW Standard Deviation 49.1 fL (35.1-46.3); Red Blood Cell Count 4.16 M/mm3 (3.80-5.20); White Blood Cell Count 17.52 K/mm3 (4.00-11.30)
[2021-08-15 05:15] LABS: Albumin, Blood 2.9 g/dL (3.4-5.0); Bilirubin, Total 0.4 mg/dL (0.1-1.0); Bun/Creatinine Ratio 23.9 (12.0-20.0); Calcium, Blood 8.5 mg/dL (8.5-10.1); Creatinine, Blood 0.96 mg/dL (0.40-1.00); Globulin, Blood 2.8 g/dL (2.2-4.0); Magnesium, Blood 2.5 mg/dL (1.6-2.4); Potassium, Blood 3.6 mmol/L (3.5-5.5); Total Protein, Blood 5.7 g/dL (6.4-8.2)
--- NOTE | 2021-08-15 05:24 | NUR ---
SHIFT SUMMARY BEGINNING OF SHIFT: PT ALERT, ORIENTED TO SELF, FAMILY, AND FOLLOWING MANY COMMANDS. CONFUSED TO SITUATION AND THE FACT THAT SHE IS ACTIVELY WITHDRAWING FROM ALCOHOL. IN ST WHILE OTHER VSS. PT RESTRAINED WITH VEST AND SBW RESTRAINTS. PT TOLERATING THIS. MIDDLE OF SHIFT: PT PROGRESSIVELY BECOMING MORE AND MORE AGITATED, IMPULSIVE, DIAPHORETIC, TREMULOUS, ETC. CIWAS AT TIMES >22. LIBRIUM, ATIVAN, AND PHENOBARBITAL ADMINISTERED PER EMAR TO MAINTAIN SAFE WITHDRAWAL. PT WILL PRESENT RESTING FOR SHIRT PERIODS OF TIME POST DOSING AND THEN WAKE UP SEVERELY AGITATED AND CONFUSED, TRYING TO GET OUT OF BED, PULLING AT LINES, ETC. WHEN THIS HAPPENS, IT TAKES A LONG TIME TO CONTROL AND SAFELY LOWER PT'S WITHDRAWAL AGAIN SO THIS RN HAS TAKEN THE CONTINUAL DOSING APPROACH. END OF SHIFT: PT RESTING CURRENTLY. STILL RESTRAINED. HAD 2 INCONTINENT VOIDS. POWERGLIDE PATENT. BED ALARM ON.
--- NOTE | 2021-08-15 09:30 | NUR ---
ASSUMED CARE OF PATIENT AFTER RECIEVING REPORT FROM ROGELIO. PATIENT IS RESTING COMFORTABLY WITH EYES CLOSED, RESP E/U. SHE HAS WRIST RESTRAINTS AND DEBRA VEST IN PLACE FOR SAFETY. CALL LIGHT IN REACH. WILL CONTINUE TO MONITOR.
--- NOTE | 2021-08-15 12:00 | NUR ---
UPDATE: Assessment unchanged. VSS. Patient has been obtunded, moaning with repositioning. She has been suctioned a few times with thick victor secretions via yonkur. Kim vest and wrist restraints removed earlier, she has been calm and quiet. Bed alarm on for safety. WCTM.
--- NOTE | 2021-08-15 14:00 | NUR ---
UPDATE PT CONTINUES TO BE LETHARGIC AND ONLY RESPONSIVE TO PAINFUL STIMULUS WITH MOANING. PT WILL NOT OPEN EYES OR FOLLOW DIRECTIONS. VS STABLE. O2 SATS REMAIN ABOVE 90% ON RA. BP STABLE. HR NSR 90'S. UNABLE TO ASSESS CIWA DUE TO SOMNOLENCE. PT HAS NOT HAD ANY SEDATING MEDICATIONS THIS SHIFT. PT INCONTINENT OF URINE AND ATTENDS IN PLACE. PT BEING REPOSITIONED Q2H. ORAL CARE PROVIDED Q1H AND PT NOT CLEARING SECRETIONS. DR. RAMIREZ NOTIFIED. WILL CONTINUE TO MONITOR CLOSELY
[2021-08-15 14:33] LABS: Base Excess Venous -0.3 mmol/L; Bicarbonate Venous 23.1 mmol/L (24.0-30.0); PCO2 Venous 54.8 mmHg (38-42); pH Blood Venous 7.29 (7.34-7.37)
--- NOTE | 2021-08-15 17:06 | NUR ---
SHIFT SUMMARY MENTATION REMAINS UNCHANGED. VS STABLE. FREQUENT ORAL CARE PROVIDED AND REPOSITIONING. PT'S UPDATED. BED ALARM ON FOR SAFETY. WILL CONTINUE TO MONITOR AND REPORT TO ONCOMING RN
[2021-08-15 22:50] LABS: PO2 Arterial 50.5 mmHg (80-100); pH Blood Arterial 7.36 (7.35-7.45)
--- NOTE | 2021-08-15 23:13 | NUR ---
PT UPDATE PT SATS FALL TO 86-88% WHILE ON 1.5-2 L VIA NC. REMAIN AT 87-88% DESPITE O2 INCREASE TO 4 L. RESULTS OF ABG REQUESTED FROM DR SANTOS, PERFORMED BY ROSS RT SHOW HYPOXIA. KNOTTER HAND TULIO AND ELLIE KNOTTER HAND FROM ICU AT BEDSIDE TO ASSESS PT WITH ROSS RT. AFTER SOME DEEP SUCTIONING BY ROSS RT, PT HAS WEAK COUGH. GAG REFLEX IS MOSTLY ABSENT. PT MOANS SOME TO LOUD VERBAL STIMULATION AND WITHDRAWS AND MOANS WITH STERNAL RUB, OTHERWISE, MINIMAL RESPONSE. CHEST X-RAY TO BE PERFORMED TO REASSESS PT LUNGS D/T NEED FOR FREQUENT SUCTIONING AND COARSE LS. REPEAT ABG TO BE PERFORMED AT 2345. PT SATS 98-100% FOLLOWING SUCTIONING AND BREATHING TX.
[2021-08-15 23:51] LABS: PCO2 Arterial 46.6 mmHg (35-45); PO2 Arterial 96.9 mmHg (80-100); pH Blood Arterial 7.35 (7.35-7.45)
--- NOTE | 2021-08-16 00:53 | NUR ---
PT UPDATE PT sats maintain 96%-98% on 5 L via NC. Pt opens eyes once, stares stuart. Shakes head no when this RN asks her to and attempts to squeeze this RN's hands. Weak cough, absent gag reflex. Frequent suctioning needed. ABG improved from last. Pt still not responding with discernable words, eyes back to closed and pt has occasional weak movements with arms.
[2021-08-16 04:42] LABS: Hematocrit 41.6 % (33.0-51.0); Hemoglobin 13.3 g/dL (11.5-16.0); Mean Corpuscular HGB 29.6 pg (26.0-34.0); Mean Corpuscular Volume 92 fL (80-100); Mean Platelet Volume 10.2 fL (9.1-12.4); Platelet Count 194 K/mm3 (150-400); RDW Coefficient Variation 14.8 % (11.7-14.2); White Blood Cell Count 16.64 K/mm3 (4.00-11.30)
[2021-08-16 05:05] LABS: Albumin, Blood 2.9 g/dL (3.4-5.0); Albumin/Globulin Ratio 0.9 (0.8-1.8); Bilirubin, Total 0.4 mg/dL (0.1-1.0); Bun/Creatinine Ratio 31.4 (12.0-20.0); Calcium, Blood 8.4 mg/dL (8.5-10.1); Creatinine, Blood 0.61 mg/dL (0.40-1.00); Globulin, Blood 3.2 g/dL (2.2-4.0); Potassium, Blood 4.1 mmol/L (3.5-5.5); Total Protein, Blood 6.1 g/dL (6.4-8.2)
--- NOTE | 2021-08-16 06:39 | NUR ---
PT SUMMARY PT UNRESPONSIVE THROUGHOUT MOST OF SHIFT. RANDOM EPISODES OF SPONTANEOUS EYE OPENING WITHOUT DIRECTED ATTENTION OF GAZE OR PURPOSEFUL STARE. NO DISTINCT WORDS FROM PATIENT. PT MOANS OCCASIONALLY. SOME EPISODES OF PULLING AWAY DURING CARE AND PULLING OFF TELE LEADS AND SPO2 MONITOR. OTHERWISE TOO SOMNOLENT AND WEAK TO HAVE PURPOSEFUL MOVEMENTS. RT ASSISTS IN SUPPORTING PT WITH SUCTIONING T/O SHIFT. NPA NEEDED TO AID IN DEEP SUCTIONING BY RT. SCANT BLOOD IN THICK MUCUS ON ORAL SUCTIONING. PT'S NEED FOR SUCTIONING SEEMS TO WORSEN T/O SHIFT. MULTIPLE ATTEMPTS AT SUCTIONING PT'S AIRWAY NEEDED PER HOUR. CAPNOGRAPHY PLACED TO AID IN MONITORING OF RESPIRATORY STATUS AND BREATHING. SATS 94-98% ON 6 L VIA NC. CAPNOGRAPHY READS ETCO2 AT 23-30. MEAN AT 27. RR 25-40 DEPENDING ON WHETHER PT IS RECEIVING SUCTIONING, REPOSITIONED, OR BECOMING AGITATED. MEDICATED WITH 10 MG OF HYDRALAZINE D/T SBP CONSISTENTLY 170 AND GREATER. LOWERED TO 150'S-160'S AND BP BACK UP FOLLOWING CARE AND SUCTIONING. PT TACHYCARDIC THIS AM FROM MEAN OF 105 BPM TO 110-120'S. SPO2 IS LOWER WELL, EVEN FOLLOWING DEEP SUCTIONING THROUGH NT. MUCUS IS THICK AND COPIOUS, CAN BE HEARD AT BASE OF PT'S THROAT. PT LACKS A NORMAL GAG REFLEX. WEAK COUGH OCCASIONALLY STIMULATED WITH SUCTIONING. LS COARSE T/O, DIMINISHED OVER R. FREQUENT ORAL CARE PERFORMED, PT BEGINS FIGHTING ORAL CARE IN EARLY AM. REPOSITIONED ON PILLOWS T/O SHIFT WHILE KEEPING HOB ELEVATED POSSIBLE. X2 SOILED ATTENDS. NS INFUSING THROUGH MARYANN POWERGLIDE AT 100 ML/HR PER ORDER.
[2021-08-16 08:50] LABS: Source, Urine Foley catheter
[2021-08-16 08:55] LABS: Bilirubin, Urine Neg (Neg); Blood, Urine Neg (Neg); Glucose Qualitative, Urine Neg (Neg); Ketones, Urine Neg (Neg); Leukocyte Esterase, Urine 2+ (Neg); Nitrite, Urine Pos (Neg); Protein, Urine 3+ (Neg); Specific Gravity, Urine 1.015 (1.003-1.022); Urobilinogen, Urine NORM (Normal)
--- NOTE | 2021-08-16 08:55 | NUR ---
UPDATE ASSUMED CARE AT APPROXIMATELY 0715. PT MINIMALLY RESPONSIVE TO STERNAL RUB. PT NOT OPENING HER EYES. HR SINUS TACH IN THE 120'S. BP STABLE. 02 SATS >90% ON 5L NC. RR 30-40'S. ENTITLED CO2 IN THE 20'S WHILE THIS RN AROUSES THE PT, BUT IN THE LOW TEENS WHEN LEFT ALONE. LS COARSE THROUGHOUT AND PT REQUIRING DEEP SUCTIONING TO CLEAR SECRETIONS. NPA IN PLACE. PT INCONTINENT OF FOUL SMELLING URINE. DR. RAMIREZ CALLED AND IN TO SEE PT. NEW ORDERS PLACED AND PT TO BE TRANSFERRED TO ICU. PT TAKEN TO CT FIRST AND ACCOMPANIED BY RN AND RT. THIS RN ATTEMPTED TO CALL M[facility]IAN, BUT HE DID NOT ANSWER AND MESSSAGE WAS LEFT TO RETURN CALL. ALL PT BELONGINGS TAKEN TO ICU 10
--- NOTE | 2021-08-16 09:00 | NUR ---
UPDATE ASSUMED CARE AT APPROXIMATELY 0715. PT MINIMALLY RESPONSIVE TO STERNAL RUB. PT NOT OPENING HER EYES. HR SINUS TACH IN THE 120'S. BP STABLE. 02 SATS >90% ON 5L NC. RR 30-40'S. ETCO2 IN THE 20'S WHILE THIS RN AROUSES THE PT, BUT IN THE LOW TEENS WHEN LEFT ALONE. LS COARSE THROUGHOUT AND PT REQUIRING DEEP SUCTIONING TO CLEAR SECRETIONS. NPA IN PLACE. PT INCONTINENT OF FOUL SMELLING URINE. DR. RAMIREZ CALLED AND IN TO SEE PT. NEW ORDERS PLACED AND PT TO BE TRANSFERRED TO ICU. PT TAKEN TO CT FIRST AND ACCOMPANIED BY RN AND RT. THIS RN ATTEMPTED TO CALL MIRIAN, BUT HE DID NOT ANSWER AND MESSSAGE WAS LEFT TO RETURN CALL.
[2021-08-16 09:08] LABS: Appearance, Urine Hazy (Clear); Color, Urine Yellow (P-Yellow)
[2021-08-16 09:09] LABS: White Blood Cells, Urine 25-50 /hpf (0-5)
[2021-08-16 09:10] LABS: Bacteria Many /hpf; Red Blood Cells, Urine 0-2 /hpf (0-2); Squamous Epithelial Cells Few /hpf (Few)
--- NOTE | 2021-08-16 09:38 | NUR ---
ASSUMPTION OF CARE RECEIVED REPORT FROM ROGELIO NICE, PATIENT ARRIVED TO UNIT AT 0908. EYES CLOSED, DID NOT RESPOND TO PHYSICAL OR VERBAL COMMAND. PUPILS EQUAL AND REACTIVE. LUNGS COARSE WITH 4L 02 WITH C02 MONITORING ATTACHED, SP02 ABOVE 95%. SINUS TACH RATE 110-120, HYPERTENSIVE WITH IV HYDRALAZINE GIVEN. IV FLUIDS STARTED VIA POWERGLIDE TO MARYANN. BETHEA NOTED, PATENT AND DRAINING YELLOW URINE WITH SEDIMENT. REPOSITIONED CHARTED. RECEIVED ORDERS FOR ABG AND PULMONOLOGY CONSULT. WILL REVIEW ADDITIONAL ORDERS AND TREAT PRESCRIBED.
[2021-08-16 10:05] LABS: PCO2 Arterial 41.7 mmHg (35-45); PO2 Arterial 66.9 mmHg (80-100); pH Blood Arterial 7.37 (7.35-7.45)
--- NOTE | 2021-08-16 17:47 | NUR ---
SHIFT SUMMARY PATIENT TRANSFERRED TO ICU FROM PCU DUE TO DECREASED NEURO RESPONSE AND AIRWAY MANAGEMENT. NASAL TRUMPET TO LEFT NARE IN PLACE WITH 4L 02 VIA NC WITH CONTINUOUS CO2 MONITORING. ABG COLLECTED, FREQUENT ORAL SUCTIONING PROVIDED WITH THICK, BRYAN SECRETIONS SUCTIONED. PATIENT WITH WEAK GAG AND COUGH. NO RESPONSE TO PHYSICAL OR VERBAL STIMULI. DR. PLUMMER CONSULTED, EVALUATED PATIENT WITH RECOMMENDATIONS TO CONTINUE TO MONITOR AT THIS TIME. MEDICATED ONCE FOR HYPERTENSION. IV FLUIDS GIVEN, CURRENTLY SALINE LOCKED. BETHEA CATHETER PATENT AND DRAINING CLEAR, KARTHIK URINE. WILL CONTINUE TO MONITOR AND REPORT TO ONCOMING RN.
--- NOTE | 2021-08-16 22:55 | NUR ---
PT BP 191/93. SPOKE TO DR GTZ AND INFORMED HIM OF PT BP. ORDERS GIVEN. SEE EMAR.
--- NOTE | 2021-08-16 23:53 | NUR ---
PT CONTINUES TO BE HYPERTENSIVE. SPOKE TO DR PLUMMER. ORDERS GIVEN. SEE EMAR
--- NOTE | 2021-08-17 06:02 | NUR ---
SHIFT MARCUS EARLY IN THE SHIFT PT WAS ON 4LNC. SHE WAS UNABLE TO MAINTAIN HER OXYGEN SATURATION GREATER THAN 90%. AFTER DEEP SUCTIONING WITH RT, PT SATS REMAINED IN THE 80S. DR PLUMMER WAS NOTIFIED AND BIPAP WAS ORDERED FOR THE PT. HER OXYGEN SAT IMPROVED WITH THE BIPAP. SHE HAS ALSO BEEN QUITE HYPERTENSIVE, REQUIRING A DOSE OF VASOTEC AND 2 DOSES OF LABETOLOL TO KEEP SYSTOLIC <160. SHE BECOMES AGITATED AT TIMES, PULLING AT THINGS AND TRYING TO GET OUT OF BED BUT IN INCOHERANT DURING THOSE TIMES. SHE WILL NOT MAKE EYE CONTACT OR SPEAK OR FOLLOW ANY COMMANDS. SHE DOES HAVE A GAG REFLEX AND HER COUGH EFFORT HAS IMPROVED OVER NIGHT. I SWAPPED HER BACK OVER TO 6LNC TO PERFORM MOUTH CARE. SHE DESATURATED PRETTY QUICKLY AND WAS PLACED BACK ON THE BIPAP.
[2021-08-17 09:14] LABS: BASOPHILS ABSOLUTE AUTO 0.03 K/mm3 (0.00-0.23); BASOPHILS PERCENT AUTO 0 % (0-2); EOSINOPHILS PERCENT AUTO 0 % (0-6); Hematocrit 36.9 % (33.0-51.0); IMMATURE GRAN PERCENT AUTO 1 % (0-1); LYMPHOCYTES ABSOLUTE AUTO 0.95 K/mm3 (0.84-5.20); LYMPHOCYTES PERCENT AUTO 5 % (21-46); MONOCYTES ABSOLUTE AUTO 1.58 K/mm3 (0.16-1.47); MONOCYTES PERCENT AUTO 8 % (4-13); Mean Corpuscular HGB Conc 32.5 g/dL (31.5-36.5); Mean Corpuscular Volume 92 fL (80-100); Mean Platelet Volume 10.2 fL (9.1-12.4); NEUTROPHILS PERCENT AUTO 87 % (41-73); Platelet Count 191 K/mm3 (150-400); RDW Coefficient Variation 15.1 % (11.7-14.2); White Blood Cell Count 21.16 K/mm3 (4.00-11.30)
[2021-08-17 09:24] LABS: Albumin, Blood 2.6 g/dL (3.4-5.0); Albumin/Globulin Ratio 0.8 (0.8-1.8); Bilirubin, Total 0.5 mg/dL (0.1-1.0); Bun/Creatinine Ratio 31.8 (12.0-20.0); Calcium, Blood 8.5 mg/dL (8.5-10.1); Creatinine, Blood 0.6 mg/dL (0.40-1.00); Globulin, Blood 3.4 g/dL (2.2-4.0); Potassium, Blood 3.9 mmol/L (3.5-5.5)
--- NOTE | 2021-08-17 09:37 | NUR ---
0829 DR PLUMMER AT BEDSIDE, PATIENT RESTLESS AND PULLING AT RESTRAINTS AND LINES, RESPIRATION 50, 2L O2 VIA NC ON 86% SATS, PER DR PLUMMER, START PRECEDEX GTT, PUT PATIENT BACK ON BIPAP AND GIVE A BREAK FROM BIPAP LATER, LABS ORDERED. 09 DR PLUMMER ROUNDED AND CHECKED ON PATIENT, NO NEW ORDERS. PATIENT NOT RESPONDING TO VOICE OR TOUCH, EYES OPEN, NOT TRACKING STAFF IN THE ROOM. PRECEDEX NOW STARTED, PATIENT ASLEEP, NO DISTRESS, NO RESTLESSNESS, BIPAP ON SATS 95% RESPIRATIONS 24, WCTM
--- NOTE | 2021-08-17 12:17 | NUR ---
PATIENTS MIRIAN VISITNG AT BEDSIDE
--- NOTE | 2021-08-17 17:50 | NUR ---
DR LEE ROUNDED, REPORTED BP, HEART RATE, MENTATION CHANGES, AND PRECEDEX EFFECTS, NO CHANGES TO MEDICATIONS OR TREATMENTS
--- NOTE | 2021-08-17 18:33 | NUR ---
UNABLE TO CLEARLY MAKE NEEDS KNOWN, PATIENT RESTLESS PULLING AT RESTRAINTS, LINES AND BIPAP, OR SEDATED, PRECEDEX GTT AT 0.4 MCG, SBP 168/70, SATS 95% ON BIPAP 12/8 30%. STRONG PULSES, COCCYX DRESSING INPLACE, NO SKIN BREAKDOWN. RESTRAINTS IN PLACE, WILL RELAY TO PM RN
[2021-08-18 05:17] LABS: BASOPHILS ABSOLUTE AUTO 0.02 K/mm3 (0.00-0.23); BASOPHILS PERCENT AUTO 0 % (0-2); EOSINOPHILS ABSOLUTE AUTO 0.01 K/mm3 (0.00-0.68); EOSINOPHILS PERCENT AUTO 0 % (0-6); Hematocrit 33.3 % (33.0-51.0); Hemoglobin 10.7 g/dL (11.5-16.0); IMMATURE GRAN PERCENT AUTO 1 % (0-1); LYMPHOCYTES ABSOLUTE AUTO 1.01 K/mm3 (0.84-5.20); LYMPHOCYTES PERCENT AUTO 7 % (21-46); MONOCYTES ABSOLUTE AUTO 1.25 K/mm3 (0.16-1.47); MONOCYTES PERCENT AUTO 9 % (4-13); Mean Corpuscular HGB 29.6 pg (26.0-34.0); Mean Corpuscular HGB Conc 32.1 g/dL (31.5-36.5); Mean Corpuscular Volume 92 fL (80-100); Mean Platelet Volume 10.5 fL (9.1-12.4); NEUTROPHILS ABSOLUTE AUTO 12.05 K/mm3 (1.96-9.15); NEUTROPHILS PERCENT AUTO 83 % (41-73); Platelet Count 133 K/mm3 (150-400); RDW Coefficient Variation 14.8 % (11.7-14.2); RDW Standard Deviation 50.1 fL (35.1-46.3); Red Blood Cell Count 3.61 M/mm3 (3.80-5.20); White Blood Cell Count 14.54 K/mm3 (4.00-11.30)
[2021-08-18 05:58] LABS: Bun/Creatinine Ratio 35.2 (12.0-20.0); Calcium, Blood 8.2 mg/dL (8.5-10.1); Creatinine, Blood 0.51 mg/dL (0.40-1.00); Phosphorus, Blood 3.4 mg/dL (2.5-4.9); Potassium, Blood 3.6 mmol/L (3.5-5.5)
--- NOTE | 2021-08-18 06:24 | NUR ---
SHIFT SUMMERY PT IS ON PRECEDEX GTT AT 0.7. SHE HAS BEEN TRYING TO GET OUT OF BED AND SHE IS UNABLE TO BE REDIRECTED OR FOLLOW DIRECTIONS. SHE IS IN SOFT BILATERAL WRIST RESTRAINTS FOR SAFETY. SHE IS ON BIPAP, TOLERATING FAIR. SHE WAS GIVEN A BREAK AND PLACED ON NC BUT BECAME SOB W/INCREASED WOB AND WAS PLACED BACK ON THE BIPAP. HER VS HAVE BEEN STABLE THROUGHOUT THE NIGHT.
--- NOTE | 2021-08-18 07:45 | NUR ---
ASSUMED CARE: REPORT RECEIVED FROM MARÍA Camargo RN. ASSUMED CARE OF THIS PT AT APPROX 0700. ON ASSESSMENT, THE PT IS RESTING QUIETLY, SEDATED W/ PRECEDEX AT 0.7 MCG/KG/HR. PER REPORT, THE PT OCCASIONALLY OPENS EYES SPONTANEOUSLY, BUT DOES NOT TRACK OR FOLLOW DIRECTIONS DURING THAT TIME. SHE DOES ALSO ATTEMPT TO GET OOB & IS NOT REDIRECTABLE. LS ARE DIM T/O, OCCASIONAL COARSENESS IN BASES. BIPAP IN PLACE W/ SETTINGS: 12/8 & 30% FIO2 W/ O2 SATS > 92%. MONITOR SHOWS SR W/ HR 60s, PRN ANTIHYPERTENSIVES PER EMAR. NPO R/T AMS & BIPAP USE. BETHEA PATENT/ DRAINING YELLOW URINE. SKIN CONDITION OVERALL INTACT, Q2H REPOSITIONING TO MAINTAIN SKIN ITEGRITY. WILL CONTINUE TO MONITOR & UPDATE NEEDED.
--- NOTE | 2021-08-18 10:45 | NUR ---
DR SIEGEL: PROVIDER AT BEDSIDE THIS AM TO WENDYAL PT. HE HAS REMOVED THE BIPAP & PLACED THE PT ON 4L NC. SHE IS NOTED TO HAVE A WET COUGH & SOME BLOODY SECRETIONS ARE SUCTIONED USING YANKAUR. HERNANDO Hunt, RT, TO BEDSIDE PER PROVIDER REQUEST TO PLACE PT ON AIRVO & COMPLETE NT SUCTIONING. DURING NT SUCTIONING, LARGE AMNTS OF THICK BLOODY SECRETIONS ARE SUCTIONED. AIRVO NOW IN USE W/ SETTINGS: 40 L/MIN & 30% FIO2, O2 SATS > 92%. PT's , MIRIAN, IS AT BEDSIDE DURING THIS TIME & HAS BEEN PROVIDED W/ AN UPDATE, PER DR SIEGEL.
--- NOTE | 2021-08-18 16:46 | NUR ---
DR LEE: PROVIDER ROUNDING THIS EVENING. DISCUSSED OUTPUT OF 300 ML DARK YELLOW URINE & POSSIBILITY OF STARTING IV NUTRITION TOMORROW IF PT REMAINS ALTERED IN MENTATION. HE STS TO START NS @ 75 ML/HR x1 BAG & WE WILL READDRESS DIETARY/ IVF NEEDS TOMORROW BASED ON TYPE OF NUTRITION THAT IS STARTED. NO OTHER CHANGES AT THIS TIME.
--- NOTE | 2021-08-18 17:00 | NUR ---
SHIFT SUMMARY: NO ACUTE CHANGES SINCE PRIOR UPDATES. PT REMAINS OVERALL ALTERED IN MENTATION. SHE HAS BEEN MORE ALERT THIS AFTERNOON, SAYING SOME PHRASES. SHE ASKS FOR "MIRIAN" HER & STS "I NEED TO GO TO THE HOSPITAL," DESPITE FREQUENT REORIENTATION THAT SHE IS IN THE HOSPITAL. LS ARE COARSE IN BASES, PT ON AIRVO W/ SETTINGS: 60 L/MIN & 30% FIO2. O2 SATS > 95%, PT HAS OCCASIONAL C/O SOB. LARGE AMNTS OF THICK BRYAN/ BLOODY SPUTUM VIA NT SUCTIONING x2 THIS SHIFT. MONITOR SHOWS SR W/ HR 60-80s, BP STABLE. HTN W/ INCREASED ANXIETY, PRN ANTIHYPERTENSIVES ORDERED PER EMAR. PT NPO R/T AMS, NO BM THIS SHIFT. BETHEA PATENT/ DRAINING DARK YELLOW URINE. SKIN CONDITIO OVERALL INTACT, Q2H REPOSITIONING TO MAINTAIN SKIN INTEGRITY. WILL CONTINUE TO MONITOR & REPORT OFF TO ONCOMING RN.
--- NOTE | 2021-08-18 17:08 | NUR ---
SHIFT SUMMARY: NO ACUTE CHANGES SINCE PRIOR UPDATES. PT's OVERALL MOOD REMAINS LABILE. AT TIMES HE IS PLEASANT W/ STAFF & AT TIMES HE IS AGITATED, VERBALIZING THAT HE "DOESN'T UNDERSTAND" WHY HE NEEDS TO STAY ANOTHER NIGHT IN THE HOSPITAL & BECOMING FRUSTRATED W/ CARE MEASURES SUCH CBG CHECKS. LS ARE CLEAR T/O, PT ON RA W/ O2 SATS > 95% WHEN CHECKED. DENIES SOB. MONITOR SHOWS AFIB W/ HR 80-110s, INCREASED W/ ACTIVITY. SBP 80-90s AT TIMES, MAP MAINTAINING > 65 W/ LEVOPHED OFF SINCE THIS AM. DENIES CP OR DISCOMFORT. PT DENIES HAVING ANY APPETITE, IS REFUSING MEAL TRAYS. CBG TRENDING DOWN W/ INCREASED INSULIN DOSING. BETHEA PATENT/ DRAINING CLOUDY YELLOW URINE. SKIN CONDITION OVERALL INTACT, PT REPOSITIONS SELF W/ INDEPENDENTLY OR W/ MIN ASSIST FOR COMFORT. RIGHT RADIAL PUNCTURE SITE WNL, SMALL AMNT OF BRUISING NOTED DIRECTLY AROUND SITE. NO HEMATOMA FORMATION NOTED. WILL CONTINUE TO MONITOR & REPORT OFF TO ONCOMING RN.
--- NOTE | 2021-08-18 19:30 | NUR ---
ASSUMED CARE PATIENT LYING IN BED AWAKE, ATTEMPTING TO SIT UP IN BED AND EXIT BED. WHEN ASKED WHERE SHE WAS GOING AND WHY SHE WAS EXITING THE BED SHE WOULD MOAN AND MAKE SOUNDS-MINIMAL WORDS. EASILY REDIRECTABLE AND LAYS BACK DOWN AFTER BEING CONSOLED. ASKING FOR FREQUENTLY. PRECEDEX INF @ 0.7MCG/KG/HR AND NS @ 75ML/HR TO MARYANN PG. 22G TO LT WRIST PATENT AND SALINE LOCKED. AIRVO IN PLACE AT 60LPM 30% FIO2 WITH SPO2 98-99%. MONITOR SHOWS SINUS RHYTHM WITH RATE 60'S. BP STABLE-HTN AT TIMES. CIWA 8 ON ASSESSMENT. BETHEA PATENT AND DRAINING YELLOW CLEAR URINE TO GRAVITY. BRUISING TO MURIEL AND REDNESS TO COCCYX WITH MEPILEX IN PLACE. REPORT COMPLETED WITH ARLET SANTOS.
[2021-08-19 03:33] LABS: BASOPHILS ABSOLUTE AUTO 0.04 K/mm3 (0.00-0.23); BASOPHILS PERCENT AUTO 0 % (0-2); EOSINOPHILS ABSOLUTE AUTO 0.01 K/mm3 (0.00-0.68); EOSINOPHILS PERCENT AUTO 0 % (0-6); Hematocrit 37.5 % (33.0-51.0); Hemoglobin 12.1 g/dL (11.5-16.0); IMMATURE GRAN ABSOLUTE AUTO 0.24 K/mm3 (0.00-0.10); IMMATURE GRAN PERCENT AUTO 2 % (0-1); LYMPHOCYTES ABSOLUTE AUTO 0.56 K/mm3 (0.84-5.20); LYMPHOCYTES PERCENT AUTO 6 % (21-46); MONOCYTES PERCENT AUTO 6 % (4-13); Mean Corpuscular HGB 29.5 pg (26.0-34.0); Mean Corpuscular HGB Conc 32.3 g/dL (31.5-36.5); Mean Corpuscular Volume 92 fL (80-100); Mean Platelet Volume 10.5 fL (9.1-12.4); NEUTROPHILS ABSOLUTE AUTO 8.65 K/mm3 (1.96-9.15); NEUTROPHILS PERCENT AUTO 86 % (41-73); Platelet Count 133 K/mm3 (150-400); RDW Coefficient Variation 14.6 % (11.7-14.2); RDW Standard Deviation 48.8 fL (35.1-46.3)
[2021-08-19 03:53] LABS: Albumin, Blood 2.4 g/dL (3.4-5.0); Albumin/Globulin Ratio 0.7 (0.8-1.8); Bilirubin, Total 0.5 mg/dL (0.1-1.0); Bun/Creatinine Ratio 29.2 (12.0-20.0); Calcium, Blood 8.5 mg/dL (8.5-10.1); Creatinine, Blood 0.51 mg/dL (0.40-1.00); Globulin, Blood 3.5 g/dL (2.2-4.0); Magnesium, Blood 1.7 mg/dL (1.6-2.4); Phosphorus, Blood 4.3 mg/dL (2.5-4.9); Potassium, Blood 3.8 mmol/L (3.5-5.5); Total Protein, Blood 5.9 g/dL (6.4-8.2)
--- NOTE | 2021-08-19 06:07 | NUR ---
SHIFT SUMMARY PATIENT WAS SOMNOLENT T/O SHIFT. TITRATED PRECEDEX DOWN TO 0.3MCG/KG/HR AT BEGINNING OF SHIFT AND PATIENT BECAME INCREASINGLY AGITATED; PULLING AT RESTRAINTS, SITTING UP IN BED, AND YELLING. REQUIRED ONE DOSE OF ATIVAN AT THIS TIME AND INCREASE IN PRECEDEX BACK TO 0.7 MCG/KG/HR GRADUALLY. THIS EVENT OCCURED AGAIN LATER IN THE SHIFT. PATIENT REMAINED ONLY ORIENTED TO SELF AND FOLLOWING DIRECTIONS. ASKS FOR WEATER AND FOOD, BUT DOES NOT AWAKEN LONG ENOUGH FOR BEDSIDE SWALLOW EVAL. NS @ 75ML/HR AND PRECEDEX @ 0.7 MCG/KG/HR INF TO PG IN MARYANN-NO LONGER PULLS BLOOD. 22G PIV IN LT WRIST SALINE LOCKED. PATIENT HAD 600ML OUT OF BETHEA. NO BM DURING SHIFT. REQUIRED ONE DOSE OF LABETALOL 40MG IV FOR SBP GREATER THAN 160. AIRVO REMAINS AT 60LPM 30% FIO2 WITH SPO2 MID 90'S. LUNG SOUNDS REMAIN COARSE T/O. NT SUCTIONED ONCE WITH MINIMAL BLOODY SECRETIONS. NO OTHER CHANGES DURING SHIFT.
--- NOTE | 2021-08-19 07:23 | NUR ---
ASSUMED CARE: REPORT RECEIVED FROM ANDREWS Guzman RN. ASSUMED CARE OF THIS PT AT APPROX 0700. ON ASSESSMENT, THE PT IS RESTING QUIETLY W/ PRECEDEX INFUSING AT 0.7 MCG/KG/HR. SHE IS ORIENTED TO SELF, TRACKS W/ EYES. DIFFICULT TO REDIRECT AT TIMES, FREQUENTLY ASKING THE SAME QUESTIONS, PER REPORT. LS ARE COARSE T/O, PT ON AIRVO W/ SETTINGS: 50 L/MIN & 30% FIO2. SHE HAS A MOIST COUGH, IS UNABLE TO FULLY EXPECTORATE SPUTUM ON HER OWN. NT SUCTION PRN. MONITOR SHOWS SR W/ HR 60-70s, HTN. PRN ANTIHYPERTENSIVES PER EMAR. NPO R/T AMS. BETHEA PATENT/ DRAINING YELLOW URINE. SKIN CONDITION OVERALL INTACT, SCATTERED BRUISING NOTED TO BUE & REDDENED AREA TO COCCYX W/ MEPILEX DRESSING IN PLACE. Q2H REPOSITIONING TO MAINTAIN SKIN INTEGRITY. WILL CONTINUE TO MONITOR & UPDATE NEEDED.
--- NOTE | 2021-08-19 09:25 | NUR ---
DR SIEGEL: PROVIDER AT BEDSIDE TO EVAL PT THIS AM. DISCUSED PT's LABILE MENTATION, SHE IS EITHER SOMNOLENT OR AWAKE & AGITATED. HE WOULD LIKE THE PRECEDEX STOPPED & TO GIVE DIAZEPAM INSTEAD, PROVIDER WILL PLACED ORDERS FOR DIAZEPAM. FIO2 ON AIRVO TITRATED DOWN TO 21% W/ DESATS TO 86% NOTED, FIO2 TITRATED BACK TO 30% W/ O2 SATS NOW READING 95%. NUTRITION NEEDS FOR THE PT ALSO DISCUSSED. DIETARY CONSULT PLACED TO BEGIN PERIPHERAL NUTRITION UNTIL THE PT IS ABLE TO SAFELY TOLERATE PO INTAKE.
--- NOTE | 2021-08-19 11:29 | NUR ---
UPDATE: SINCE PRECEDEX PLACED ON STANDBY, THE PT HAS BEEN ABLE TO TELL THIS RN THAT SHE IS IN THE HOSPITAL, WOULD LIKE A SIP OF WATER & IS CURIOUS IF HER WILL BE COMING TO VISIT HER. ASPIRATION RISK DISCUSSED THE PT REMAINS QUITE DROWSY & MOUTH SWABS PROVIDED FOR COMFORT. SHE REMAINS DISORIENTED TO CITY & YEAR, BELIEVES THAT SHE IS 57 Y/O CURRENTLY.
--- NOTE | 2021-08-19 12:19 | NUR ---
Pt. is in bed, and displays evidence of discomfort. Pt. welcomes my visit, through she has limited ability to verbally communicate. With a calming presence this pt. displays evidence of thirst. Attempt to develop rapport. Pt. non-verbally responds to questions regarding being a woman of jan. Prayed for Pt. Reported to ICU nurse that Pt. said she was thristy.
--- NOTE | 2021-08-19 16:38 | NUR ---
TRANSFER TO ICU-03: PATIENT HAS BEEN TRANSFERRED FROM ICU-10 TO ICU-03 AT APPROX 1545.
--- NOTE | 2021-08-19 17:52 | NUR ---
SHIFT SUMMARY: NO ACUTE CHANGES SINCE PRIOR UPDATES. PT's MENTATION CONTINUES IMPROVING & SHE HAS BEEN ABLE TO TELL THIS RN THAT SHE IS IN THE HOSPITAL. SHE ALSO RECOGNIZES STAFF & KNOWS HER MIRIAN. SHE IS STILL DISORIENTED TO THE YEAR & TIME. LS ARE COARSE T/O, PT CONTINUES PRODUCING SMALL-MOD AMNTS OF THICK SPUTUM. SHE HAS BEEN ABLE TO EXPECTORATE MORE EFFECTIVELY THIS AFTERNOON WELL. AIRVO IN PLACE W/ SETTINGS: 50 L/MIN & 30% FIO2 W/ O2 SATS > 92%. MONITOR SHOWS SR W/ HR 70-80s, HTN W/ PRN LABETALOL x1 PER EMAR. PT STS BEING THIRSTY. MOIST MOUTH SWABS PROVIDED & PT UNABLE TO COORDINATE USING SWAB. NPO R/T AMS. PPN INITIATED THIS EVENING PER DIETARY ORDERS. BETHEA PATENT/ DRAINING CLEAR YELLOW URINE. SKIN CONDITION OVERALL CDI, MEPILEX IN PLACE TO REDDENED AREA ON COCCYX, SCATTERED BRUISING TO BUE UNCHANGED. WILL CONTINUE TO MONITOR & REPORT OFF TO ONCOMING RN.
--- NOTE | 2021-08-19 20:19 | NUR ---
PATIENT AWAKE WATCHING TV, SPEECH IS MUMBLED AND DIFFICULT TO UNDERSTAND. ORIENTATION TO SELF ONLY. WHEN REMINDED THAT SHE IS IN THE HOSPITAL AND THAT IT WAS MAY PATIENT APPEARS SHOCKED. RUTH WELL BUT POOR COORDINATION. ASSISTING WITH BRUSHING HER TEETH WITH SUCTION TOOTHBRUSH, AND ASSISTING WITH REPOSITIONING IN BED WITH A LOT OF COACHING. PRECEDEX REMAINS OFF. CIWA 8. MOIST COUGH AND COARSE LUNG SOUNDS CONTINUE. AIRVO 50L FIO2 30% IN PLACE PATIENT REMOVING OXYGEN DESPITE FREQUENT REMINDING THAT SHE IS NEEDING TO KEEP IT IN PLACE. BILAT WRIST RESTRAINTS AND DEBRA VEST IN PLACE TO HELP PATIENT TO REMEMBER TO NOT PULL AT LINES AND TUBES AND TO NOT GET OUT OF BED WITHOUT ASSISTANCE.
--- NOTE | 2021-08-20 07:00 | NUR ---
SUMMARY PATIENT MORE A&O NIGHT PROGRESSED. SPEECH CONTINUES TO BE DIFFICULT TO UNDERSTAND AT TIMES. PATIENT VERBALIZED FEELING ANXIOUS MORE SO WITH INCREASED ACTIVITY IN THE UNIT. PATIENT CONTINUES TO BE FORGETFUL AND PULLS AT OXYGEN AND OTHER LINES DESPITE REMINDERS TO KEEP IN PLACE. BILAT WRIST RESTRAINTS AND DEBRA VEST CONTINUE. PATIENT PLACED ON BEDPAN SEVERAL TIMES T/O NOC WITHOUT RESULTS. PATIENT ABLE TO CALLIE SMALL SIPS OF WATER VIA SPOON EARLY THIS MORNING. HYPERTENSION CONTINUES LABETALOL AND VASOTEC IV GIVEN. AIRVO TITRATED BY RT TO 40L FIO2 30%
[2021-08-20 07:59] LABS: Triglycerides 157 mg/dL (30-160)
--- NOTE | 2021-08-20 08:14 | NUR ---
DR LEE ROUNDED, NO CHANGES, WAITING FOR LAB RESULTS, RN STUDENT HAI CHO PROVIDING CARE WITH THIS RN SLADE MORALEZ OBSERVING, PATIENT SITTING UP, ATE A SMALL AMOUNT OF FOOD, NC @2L, SATS 95%, PLEASANT TO CARE, CALL LIGHT WITH IN REACH
--- NOTE | 2021-08-20 12:29 | NUR ---
FAMILY MIRIAN VISITING AT BEDSIDE, PATIENT BACK TO BED FROM CHAIR, ATE BREAKFAST AND LUNCH, CALL LIGHT WITH IN REACH, CIWA 10, MEDICATED WITH VALUIM 5MG, WCTM
--- NOTE | 2021-08-20 15:42 | NUR ---
Pt. is awake in bed and welcomes my visit. Pt. displays evidence of improved speech and is more engaged in dialogue than in previous visit yesterday. Establish rapport with pt. and discuss matters of jan and belief. Pt. displays evidence of understanding and agreement. [place] with Pt. Pt. verbalized gratitude for the spiritual care visit.
--- NOTE | 2021-08-20 17:29 | NUR ---
REPORT TO WILLY TIME STUDY TECHNOLOGIST AT BEDSIDE, PATIENT TRANSFERRED VIA BED, MIRIAN ACCOMPANYING. PATIENT AWAKE, SLOW TO RESPOND, FAMILY SUPPORTIVE, BM TODAY, VALIUM PRN, MEDICATED WITH TYLENOL AND SCHEDULED GABAPENTIN, CIWA 10-14, VALUIM AVAILABLE PRN Q1HPRN
--- NOTE | 2021-08-20 18:11 | NUR ---
SHIFT SUMMARY ASSUMED CARE OF PT AT APPROXIMATELY 1730. PT WAS TRANSPORTED BY BED FROM ICU. ALL PT BELONGINGS WERE TRANSPORTED TO ROOM AT THAT TIME. PT AND SPOUSE WERE ORIENTED TO THE UNIT AND ROOM. PT HAS BEEN RESTING IN BED SINCE ARRIVAL, ALERT AND ORIENTED X2. BED IS IN LOW POSITION AND LOCKED. BED ALARM IS ACTIVE. PT AND SPOUSE EXPRESSED NO CONCERNS OR QUESTIONS AT THIS TIME. SBP OF 183 OBTAINED ON ARRIVAL, CONSISTENT WITH TRENDS. PT DENIED C/O PAIN.
--- NOTE | 2021-08-21 02:40 | NUR ---
PATIENT APPEARS TO BE RESTING COMFORTABLY WITH EYES CLOSED AT THIS TIME. CIWA REASSESSMENT NOT CONDUCTED.
[2021-08-21 03:46] LABS: BASOPHILS ABSOLUTE AUTO 0.04 K/mm3 (0.00-0.23); BASOPHILS PERCENT AUTO 0 % (0-2); EOSINOPHILS ABSOLUTE AUTO 0.02 K/mm3 (0.00-0.68); EOSINOPHILS PERCENT AUTO 0 % (0-6); Hematocrit 36.9 % (33.0-51.0); Hemoglobin 12.3 g/dL (11.5-16.0); IMMATURE GRAN ABSOLUTE AUTO 0.43 K/mm3 (0.00-0.10); IMMATURE GRAN PERCENT AUTO 5 % (0-1); LYMPHOCYTES PERCENT AUTO 15 % (21-46); MONOCYTES ABSOLUTE AUTO 1.37 K/mm3 (0.16-1.47); MONOCYTES PERCENT AUTO 15 % (4-13); Mean Corpuscular HGB 29.7 pg (26.0-34.0); Mean Corpuscular HGB Conc 33.3 g/dL (31.5-36.5); Mean Corpuscular Volume 89 fL (80-100); Mean Platelet Volume 10.2 fL (9.1-12.4); NEUTROPHILS ABSOLUTE AUTO 5.87 K/mm3 (1.96-9.15); NEUTROPHILS PERCENT AUTO 64 % (41-73); Platelet Count 203 K/mm3 (150-400); RDW Coefficient Variation 14.2 % (11.7-14.2); RDW Standard Deviation 46.2 fL (35.1-46.3); Red Blood Cell Count 4.14 M/mm3 (3.80-5.20); White Blood Cell Count 9.13 K/mm3 (4.00-11.30)
[2021-08-21 04:11] LABS: Albumin, Blood 2.5 g/dL (3.4-5.0); Albumin/Globulin Ratio 0.8 (0.8-1.8); Bilirubin, Total 0.4 mg/dL (0.1-1.0); Bun/Creatinine Ratio 24.4 (12.0-20.0); Calcium, Blood 8.7 mg/dL (8.5-10.1); Creatinine, Blood 0.53 mg/dL (0.40-1.00); Globulin, Blood 3.2 g/dL (2.2-4.0); Magnesium, Blood 1.5 mg/dL (1.6-2.4); Phosphorus, Blood 3.2 mg/dL (2.5-4.9); Potassium, Blood 2.8 mmol/L (3.5-5.5); Total Protein, Blood 5.7 g/dL (6.4-8.2)
--- NOTE | 2021-08-21 06:00 | NUR ---
PT IS IMPULSIVE, MAKING FREUENT ATTEMPTS TO EXIT THE BED WITHOUT ASSISTANCE. BED ALARM ACTIVATED THROUGHOUT THE SHIFT. SHE CONTINUES TO PULL AT CORDS AND REQUIRES FREQUENT REMINDERS TO THE PURPOSE OF THE EQUIPMENT. SHE IS MOSTLY CONFUSED ABOUT HER SURROUDINGS AND OFTEN CONFUSES STAFF FOR FRIENDS OR FAMILY MEMBERS. SHE BECAME QUITE ANXIOUS OVER A PERIOD OF ABOUT 4 HOURS, REQUIRING VALIUM ADMINISTRATION x3. EVENTUALLY, A STAFF MEMBER WAS ASKED TO SIT WITH HER PT WAS DISTRAUGHT ABOUT BEING IN THE ROOM ALONE. PT SLEPT LESS THAN 2 HOURS THROUGHOUT THE NIGHT. PT HAS HISTORY OF PERIPHERAL NEUROPATHY TO BOTH FEET, AND COMPLAINS OF BURNING TO FEET. GABAPENTIN ADMINISTERED ORDERED, BUT THE DOSE AT THIS TIME IS LESS THAN HER HOME DOSE.
--- NOTE | 2021-08-21 10:17 | NUR ---
Pt. is awake in bed and welcomes my visit. Pt. is unsettled because of a lost necklace and ring after her move from ICU to PCU. With a calming presence and pastoral caree, pt. began to display evidence of patience and trust. Prayed with Pt. and verbalized I would see if there was a lost or found where her posessions might be misplaced. This guest associate reported the misplaced jewelry to nurse Whitt in ICU.
--- NOTE | 2021-08-21 18:01 | NUR ---
SHIFT SUMMARY PT HAS BEEN RESTING IN BED. PT ANSWERED ALL ORIENTATION QUESTIONS CORRECTLY EXCEPT FOR TIME/DATE. PT HAS PERSEVERATED OVER DISCHARGING HOME. IT HAS BEEN EXPLAINED MULTIPLE TIMES THAT DISCHARGE IS NOT HAPPENING TODAY. PT ATTEMPTED TO CLIMB OUT OF BED FREQUENTLY THROUGHOUT THE DAY. PT WAS REDIRECTABLE FOR THE FIRST PART OF THE DAY BUT BECAME MORE AGITATED AND COULD NOT BE REDIRECTED LATER IN THE DAY. SBP HAS RANGED 160-180, ALL OTHER VITAL SIGNS STABLE.
--- NOTE | 2021-08-22 05:58 | NUR ---
SHIFT SUMMARY Patient A/O to self only. Very confused and attempting to get out of bed. Asks questions like "when is mom coming" when her mother passed 30+ years ago. Reports no pain/CP. Patient very tremulous and requests "meds for withdrawal". Maintains over 93% on RA, lungs dim t/o with loose nonproductive cough. SR on tele 80s. Patient currently in timbo vest for safety. Hypoactive bowel tones. Ospina cath draining clear/yellow urine. Patients mood is very labile going from angry to tearful very quickly.
[2021-08-22 12:32] LABS: Albumin, Blood 3.1 g/dL (3.4-5.0); Anion Gap 10 mmol/L (6-16); Blood Urea Nitrogen 12 mg/dL (8-24); CO2, Blood 26 mmol/L (21-32); Calcium, Blood 8.8 mg/dL (8.5-10.1); Chloride, Blood 102 mmol/L (98-108); Creatinine, Blood 0.57 mg/dL (0.40-1.00); Glomerular Filtration Rate 100 (60-); Glucose, Blood 108 mg/dL (70-99); Magnesium, Blood 1.6 mg/dL (1.6-2.4); Potassium, Blood 3.4 mmol/L (3.5-5.5); Sodium, Blood 138 mmol/L (136-145)
--- NOTE | 2021-08-22 16:29 | NUR ---
PATIENT CAME TO THE SCU FROM PCU AT 1620. SHE IS IN DEBRA VEST. PLAN TO DC TO HOME TOMORROW. PATIENT IS CALM AT THIS TIME, TALKING WITH HER SISTER ON THE PHONE. BP WAS 170/80 ON ANKLE CUFF IS TO LARGE FOR WRIST. PATIENT IS NOT ON TELE, AND NOT ON O2, SHE HAS 2 PICC LINES BILATERALLY. SHE WAS HOSPITALIZED FOR EHOH WD, BUT CIWA HAS BEEN DISCONTINUED. SHE DOES NOT PLAN ON STOPPING ETOH. HEART SOUNDS REGULAR. HAS A SLIGHT COUGH THAT SHE SAYS IS NON PRODUCTIVE. SISTER IS ON PHONE SPEAKER AND THIS STITCHDOWN TOE FORMER CAN HEAR HER ASK THE PATIENT WHY SHE DOESN'T JUST TAKE SOME PILLS FINISH HERSELF OFF, BECAUSE OF THE PATIENTS DESIRE TO CONTINUE DRINKING. I CAN HEAR THE PATIENTS HURT DURING THIS CONVERSATION.
--- NOTE | 2021-08-22 16:32 | NUR ---
SHIFT SUMMARY PT IS ORIENTED X3 AND CONTINUES TO BE IMPULSIVE AND AGGRESSIVE. SHE WAS IN WRIST RESTRAINTS AND A DEBRA VEST WHEN WE ARRIVED AT THE BEGINNING OF THE SHIFT DUE TO MULTIPLE ATTEMPTS TO GET OUT OF THE BED AND PULLING ON HER LINES. SHE ACTED VERY AGGRESSIVE W ANY CARE PROVIDED, AND TRIED KICKING ME AT ONE POINT KNOCKING OFF AND BREAKING HER LUNCH TRAY. AFTER ARRIVED AND SHE TALKED TO THE DOCTOR, SHE AGREED TO COOPERATE W CARE IN ORDER TO GO HOME IN THE MORNING. SHE ALSO HAD AN ACUTE EPISODE OF BP 198/100 AND PRN LABETALOL WAS GIVEN. OXYGEN SATS OVER 92% ON RA. SR 80'S, TAKEN OFF OF TELE AND TRANSFERRED TO MEDICAL FLOOR. REPORT GIVEN TO NURSE.
--- NOTE | 2021-08-22 18:53 | NUR ---
PATIENT HAD AN EPISODE OF SOLEMNENCE. SHE DID OPEN EYES ONCE WHEN ASKED TO DO SO, BUT IS NOT VERY RESPONSIVE TO STERNAL RUB OR COMMAND TO RESPOND. DR. BENNETT WAS CALLED AND ORDERED A HEAD CT WITHOUT CONTRANST, AND STAT CHEM BLOOD GAS. LAB HERE NOW.
[2021-08-22 18:59] LABS: PO2 Arterial 57.7 mmHg (80-100)
[2021-08-22 19:00] LABS: PCO2 Arterial 43.4 mmHg (35-45); pH Blood Arterial 7.45 (7.35-7.45)
--- NOTE | 2021-08-23 04:40 | NUR ---
SHIFT SUMMARY 66 YR F ADMITTED ON 08/13/21 FOR EXACERBATION OF COPD, AND ALCOHOL DETOX. FULL CODE. NO ACUTE CHANGES THIS SHIFT. PT IS STILL IN A DEBRA VEST FOR AGGRESSION AND TRYING TO GET OUT OF BED TO LEAVE. SHE CALLED HER THIS SHIFT AND TOLD HIM TO COME GET HER. WHEN HE TOLD HER NO, SHE CURSED AND SAID HATEFUL THINGS TO HIM. SHE IS STILL VERY CONFUSED AND A&O TO SELF ONLY. SHE PULLED ON THE DEBRA STRAPS HARD ENOUGH TO GET THEM LOOSE SO THEY WERE RETIED WITH TIGHTER KNOTS. SHE FINALLY FELL ASLEEP THIS AM AND HAS BEEN SLEEPING FOR A FEW HOURS.
[2021-08-23] MEDS ORDERED: BUDESONIDE0.5 MG/2 M INH (12:31)
[2021-08-23] MEDS ORDERED: LISI20 PO (12:32)
[2021-08-23] MEDS ORDERED: B-1100 M1 PO (12:33)
[2021-08-23] MEDS ORDERED: MULVITA PO (12:34)
[2021-08-23] MEDS ORDERED: PRED5 PO (12:36)
[2021-08-23] MEDS ORDERED: Ventolin/Prove6.7 GM INH (12:38)
[2021-08-23] MEDS ORDERED: SPIRIVA RESPIMAT4 G3 INH (12:39)
--- NOTE | 2021-08-23 14:15 | NUR ---
DISCHARGE DISCHARGE ORDERS REVIEWED AND RECIEVED. PT HAD BOTH POWERGLIDES SUCCESSFULLY REMOVED. MEDICATIONS WERE FAXED TO [facility], CONFIRMATION IN CHART. PT'S ARRIVED TO PICK HER UP AND MEDICATION EDUCATION TOOK PLACE WITH BOTH OF THEM PRESENT IN THE ROOM. PT SIGNED DISCHARGE FORM AND THE FORM WAS PLACED IN THE CHART. [employer] TRANSFERRED PT TO EXIT WITH , PT CONFIRMED THE DISCHARGE INSTRUCTIONS. CHART WILL BE RETURNED WITH ALL THE NECESSARY FORMS.
--- NOTE | 2021-08-23 16:11 | NUR ---
I READ AND DISCUSSED THE EMPLOYMENT SERVICE SPECIALIST DOCUMENTATION WITH FRANKIE EMPLOYMENT SERVICE SPECIALIST. I AGREE WITH HER ASSESSMENTS AND EVALUATIONS.
== END 2021-08-23 14:29 | disposition home or self-care (01) | DRG 896 ==
LOC: ER 10:35 → MEDS 16:08 → PCU 16:55 → MEDS 17:01 → ICUW 08-13 15:44 → MEDS 08-13 15:44 → PCU 08-13 20:40 → ICUW 08-16 09:16 → ICUE 08-19 15:45 → PCU 08-20 17:25 → MEDS 08-22 16:18
PROVIDERS: Emergency Medicine; Internal Medicine; Internal Medicine Critical Care Medicine; Nurse Practitioner Acute Care; ADMIT Internal Medicine
PROC: 5A09457 Assistance with Respiratory Ventilation, 24-96 Consecutive Hours, Continuous Positive Airway Pressure (ICD-10-PCS; principal; 2021-08-16)
DX: F10.231 Alcohol dependence with withdrawal delirium (principal); J96.01 Acute respiratory failure with hypoxia; G92.8 Other toxic encephalopathy; J96.02 Acute respiratory failure with hypercapnia; J44.1 Chronic obstructive pulmonary disease with (acute) exacerbation; E87.1 Hypo-osmolality and hyponatremia; R65.10 Systemic inflammatory response syndrome (SIRS) of non-infectious origin without acute organ dysfunction; N39.0 Urinary tract infection, site not specified; E87.6 Hypokalemia; F10.221 Alcohol dependence with intoxication delirium; E83.42 Hypomagnesemia; Z78.1 Physical restraint status; D72.829 Elevated white blood cell count, unspecified; T38.0X5A Adverse effect of glucocorticoids and synthetic analogues, initial encounter; B96.1 Klebsiella pneumoniae [K. pneumoniae] as the cause of diseases classified elsewhere; F41.1 Generalized anxiety disorder; Z71.41 Alcohol abuse counseling and surveillance of alcoholic; I10 Essential (primary) hypertension; F32.A Depression, unspecified; F17.210 Nicotine dependence, cigarettes, uncomplicated; Z88.1 Allergy status to other antibiotic agents; Z88.2 Allergy status to sulfonamides; Z79.02 Long term (current) use of antithrombotics/antiplatelets; Z79.899 Other long term (current) drug therapy; Z90.710 Acquired absence of both cervix and uterus; Z91.14 Patient's other noncompliance with medication regimen
CPT/HCPCS: 31720; 36415; 36600; 51702; 70450; 70496; 71045; 80048; 80053; 80069; 80184; 81001; 82140; 82803; 83735; 84100; 84443; 84478; 85025; 85027; 87077; 87086; 87186; 93005; 93010; 94640; 94644; 94660; 94664; 94760; 94762; 96372; 96374; 96375; 96376; 97116; 97162; 97166; 97530; 97535; 99285-25; A9270; C1751; C9113; G0378; J0360; J1650; J1956; J2060; J2560; J2920; J2930; J3360; J3411; J3475; J7030; J7040; J7042; J7050; J7512; Q9967

== ENCOUNTER 2022-05-06 11:04 | Day surgery (SDC) | payer MEDICARE ==
[~2022-05-06] VITALS: Ht 167.6 cm; Wt 61.0 kg
[~2022-05-06 11:04] MED LIST changes: +B-1100 M1 PO; +BUDESONIDE0.5 MG/2 M INH; +FLUT1DIS5 INH; +LISI20 PO; +MULVITA PO; +PRED20 PO; +PRED5 PO; +SPIRIVA RESPIMAT4 G3 INH; +Ventolin/Prove6.7 GM INH
--- NOTE | 2022-05-06 17:29 | NUR ---
PT DRESSED, IV DC'D INTACT, AMB TO BTR OK, L GROIN SITE STABLE, DC'D BY VANESSA Graves DRIVING PT HOME
== END 2022-05-06 23:34 | disposition home or self-care (01) ==
LOC: MHTC 11:04
DX: I70.221 Atherosclerosis of native arteries of extremities with rest pain, right leg (principal); I77.1 Stricture of artery; I65.23 Occlusion and stenosis of bilateral carotid arteries; L97.519 Non-pressure chronic ulcer of other part of right foot with unspecified severity; F10.21 Alcohol dependence, in remission; F17.210 Nicotine dependence, cigarettes, uncomplicated
CPT/HCPCS: 37228; 37232; 75625; 75716; 75774; 76937; 85347; 99152; 99153; C1725; C1760; C1769; C1876; C1887; C1894; C9602; C9765; J1644; J2250; J3010; J7030; J7050; Q9967